=== PATIENT | female | born 1965 | race Caucasian/White ===

== ENCOUNTER → 2019-02-03 12:34 | Outpatient (CLI) | payer OTHER, SELFPAY ==
--- NOTE | 2019-02-03 12:38 | DI.RAD.S_ITS ---
PROCEDURE: XR WRIST RT MIN 3V INDICATIONS: ground level fall with right wrist pain TECHNIQUE: 4 views of the wrist were acquired. COMPARISON: [facility], , WRIST MINIMUM 3 VIEWS LEFT, 09/15/2015, 10:37. FINDINGS: Bones: No acute fractures or dislocations. No suspicious bony lesions. Scaphoid view: The scaphoid appears intact. Soft tissues: There is a small calcification adjacent to the distal ulna compatible with sequela of a prior fracture. IMPRESSION: 1. No acute fracture or dislocation. Dictated by: Ashok Michaels M.D. on 02/03/2019 at 13:40 Approved by: Ashok Michaels M.D. on 02/03/2019 at 13:41
--- NOTE | 2019-02-03 12:38 | DI.RAD.S_ITS ---
PROCEDURE: XR FOREARM RT 2V INDICATIONS: ground level fall with right forearm pain TECHNIQUE: 2 views of the forearm were acquired. COMPARISON: [facility], [place], XR WRIST RT MIN 3V, 02/03/2019, 12:39. FINDINGS: Bones: No acute fractures or dislocations. No suspicious bony lesions. Soft tissues: There is a small corticated ossicle adjacent to the distal ulna compatible with an old fracture. IMPRESSION: 1. No acute fracture or dislocation. Dictated by: Ashok Michaels M.D. on 02/03/2019 at 13:54 Approved by: Ashok Michaels M.D. on 02/03/2019 at 13:55
--- NOTE | 2019-02-03 12:38 | DI.RAD.S_ITS ---
PROCEDURE: XR HAND RT MIN 3V INDICATIONS: ground level fall with right hand pain TECHNIQUE: 3 views of the right hand acquired. COMPARISON: [facility], [place], XR WRIST RT MIN 3V, 02/03/2019, 12:39. [facility], [place], HAND 3V LEFT, 07/18/2015, 10:54. FINDINGS: Bones: No fractures or dislocations. Carpal bones are normally aligned. No suspicious bony lesions. Soft tissues: No suspicious soft tissue calcifications. IMPRESSION: 1. No fracture or dislocation. Dictated by: Ashok Michaels M.D. on 02/03/2019 at 13:41 Approved by: Ashok Michaels M.D. on 02/03/2019 at 13:54
== END ==
PROVIDERS: Visit Provider Physician Assistant
DX: M79.631 Pain in right forearm (principal); M79.641 Pain in right hand; M25.531 Pain in right wrist
CPT/HCPCS: 73090; 73110; 73130

== ENCOUNTER → 2021-03-11 13:21 | Outpatient (CLI) | payer OTHER, SELFPAY ==
--- NOTE | 2021-03-11 | DI.MG.S_ITS ---
BILATERAL DIGITAL SCREENING MAMMOGRAM 3D/2D WITH CAD: 03/11/2021 CLINICAL: Routine screening. Comparison is made to exam dated: 10/01/2013 [facility]. The tissue of both breasts is heterogeneously dense. This may lower the sensitivity of mammography. Current study was also evaluated with a Computer Aided Detection (CAD) system. There is a possible irregular asymmetry with an indistinct margin in the right breast posterior depth superior region seen on the mediolateral oblique view only. This is more prominent. No other significant masses, calcifications, or other findings are seen in either breast. IMPRESSION: INCOMPLETE: NEEDS ADDITIONAL IMAGING EVALUATION The possible irregular asymmetry in the right breast most likely is fibroglandular tissue and is indeterminate. Additional views with possible ultrasound are recommended. This exam was interpreted at Station ID: [id number]. NOTE: For mammograms, a report in lay terms will be sent to the patient. Approximately 15% of breast malignancies will not be visualized mammographically. In the management of a palpable breast mass, a negative mammogram must not discourage biopsy of a clinically suspicious lesion. Electronically Signed By: Karine starks/:03/13/2021 08:44:21 letter sent: Additional Imaging Needed ACR BI-RADS Category 0: Incomplete 3340F
== END ==
PROVIDERS: PCP Family Medicine; Referring Provider Family Medicine; Visit Provider Family Medicine
DX: Z12.31 Encounter for screening mammogram for malignant neoplasm of breast (principal)
CPT/HCPCS: 77063; 77067

== ENCOUNTER → 2021-04-04 13:27 | Outpatient (CLI) | payer OTHER, SELFPAY ==
--- NOTE | 2021-04-04 | DI.MG.S_ITS ---
UNILATERAL RIGHT DIGITAL DIAGNOSTIC MAMMOGRAM 3D/2D WITH ADDITIONAL VIEWS: 04/04/2021 CLINICAL: Additional evaluation requested from prior study. Comparison is made to exams dated: 03/11/2021 mammogram and 10/01/2013 mammogram - [facility]. The tissue of right breast is heterogeneously dense. This may lower the sensitivity of mammography. The benign asymmetry with an indistinct margin in the right breast posterior depth superior region seen on the mediolateral oblique view only is no longer seen. No other significant masses or calcifications are seen in the breast. IMPRESSION: BENIGN There is no mammographic evidence of malignancy. A 1 year screening mammogram is recommended. This exam was interpreted at Station ID: [id number]. NOTE: For mammograms, a report in lay terms will be sent to the patient. Approximately 15% of breast malignancies will not be visualized mammographically. In the management of a palpable breast mass, a negative mammogram must not discourage biopsy of a clinically suspicious lesion. Electronically Signed By: Wild Ahn acr/:04/04/2021 14:04:08 letter sent: Normal Exam ACR BI-RADS Category 2: Benign Finding(s) 3342F
== END ==
PROVIDERS: PCP Family Medicine; Referring Provider Family Medicine; Visit Provider Family Medicine
DX: R92.8 Other abnormal and inconclusive findings on diagnostic imaging of breast (principal)
CPT/HCPCS: 77065; G0279

== ENCOUNTER 2021-08-06 15:03 | Emergency (ER) | payer OTHER, MEDICAID, SELFPAY ==
[2021-08-06 15:19] VITALS: BP 145/94; PULSE 66; RESP 18; TEMP 36.2; O2SAT 98; BMI 21.5
--- NOTE | 2021-08-06 15:50 | ED_ITS ---
HPI - Head Injury General Chief complaint: Head Injury Stated complaint: HIT HEAD/LADDER COLLAPSED Time Seen by Provider: 08/06/21 15:49 Source: patient and family Mode of arrival: Wheelchair Limitations: no limitations History of Present Illness HPI Narrative: Otherwise healthy 56-year-old woman was working outside with a ladder. The center part of the tall expansions latter was not appropriately secured and the top half of the extension ladder came down and cot the crown of her head between the falling portion of the ladder and the stable portion of the latter. She did not have any acute loss of consciousness at time but was significantly dizzy, nauseated and continues to complain of significant headache. Her daughter notes that she had some gait unsteadiness walking to the car but that has seemed to resolve. She has no complaints of chest pain, dyspnea, palpitations, abdominal pain, diarrhea. She has had no recent fevers, cough, chills. She is able to speak in full sentences and is able to cooperate fully with exam and history taking Related Data Previous Rx's Medication Instructions Recorded cetirizine 10 mg tablet (Zyrtec) 5 mg PO DAILY PRN #30 tab 07/11/18 ondansetron HCl 4 mg tablet 4 mg PO Q8H PRN #14 tab 08/06/21 (Zofran) Allergies Allergy/AdvReac Type Severity Reaction Status Date / Time No Known Drug Allergies Allergy Verified 02/03/19 13:21 Review of Systems Review of Systems Narrative: Remainder of complete review of systems is otherwise unremarkable except for that included in the HPI. Patient History Social History Smoking Status: Former smoker Smoking Status: Former smoker alcohol intake frequency: holidays/special occasions only Substance Use Type: does not use Exam Narrative Exam Narrative: General: Healthy appearing, slightly dazed and complaining of headache but Able to give a complete and coherent history. Well-nourished well-developed HEENT: Moist mucous membranes, normal sclera with reactive pupils, significant tenderness to the left side of the crown with a mild hematoma and significant tenderness with manipulation at the basilar skull bilaterally with concerns for skull fracture. There is no hemotympanum appreciated. Neck: No JVD, supple, no midline tenderness Respiratory: Lungs are clear to auscultation, no wheezing no rales no rhonchi. Full and symmetrical air movement Cardiac: Regular rate and rhythm no murmurs no bruits Abdomen: Soft, nontender, good bowel tones, no flank pain Skin: Warm and dry, no rashes Neurologic: Grossly neurologically intact with no obvious asymmetries or abnormalities Extremities: No trauma, well perfused Psych: Cooperative, appropriate insight and affect Initial Vital Signs Initial Vital Signs: Vital Signs Temperature 97.2 F L 08/06/21 15:19 Pulse Rate 66 08/06/21 15:19 Respiratory Rate 18 08/06/21 15:19 Blood Pressure 145/94 H 08/06/21 15:19 Pulse Oximetry 98 08/06/21 15:19 Course Course Course Narrative: Emergency Medicine: Utilization of CT for Minor Blunt Head Trauma (Adult) Patient is 18 or older, presenting with minor blunt head trauma. Head CT was ordered by an emergency direct support professional caregiver for trauma because? -head struck by high-impact object - falling top half of an extension ladder?with clinical concerns for basilar skull fracture Orders Ordered: ED Orders 08/06/21 16:08 CT head/brain wo con Stat Discontinued Medications Acetaminophen (Acetaminophen 325 Mg Tablet) 975 mg PO NOW ONE Stop: 08/06/21 16:09 Last Admin: 08/06/21 16:26 Dose: 975 mg Documented by: ELIEL Ondansetron HCl (Ondansetron 4 Mg Odt) 4 mg SL NOW ONE Stop: 08/06/21 16:09 Last Admin: 08/06/21 16:26 Dose: 4 mg Documented by: ELIEL Vital Signs Vital signs: Vital Signs - 8 hr 08/06/21 15:19 Temperature 97.2 F L Pulse Rate 66 Respiratory Rate 18 Blood Pressure 145/94 H Pulse Oximetry 98 MDM - Head Injury Imaging Data CT scan - head: Radiologist's Impression: FINDINGS:? Image quality:? Excellent.? ? CSF spaces:? Basal cisterns are patent.? No extra-axial fluid collections.? Ventricles are normal in size and shape.? ? Brain:? No intracranial hemorrhage, mass, or mass effect.? Hong-white matter interface appears preserved.? ? Skull and face:? Calvarium and visualized facial bones are intact, without suspicious lesions.? ? Sinuses:? Visualized sinuses and mastoids are clear.? ? IMPRESSION:? ? 1. No acute intracranial abnormality. ? ? Dictated by: Ashok Michaels M.D. on 08/06/2021 at 15:26? ?? MDM Narrative Medical decision making narrative: 56-year-old woman who had the top portion of an extension ladder fall on the top of her head. She was starting to move forward out of the way so the bulk of the weight cot the posterior crown of her head rather than face or jaw. CT scan is unremarkable. She clearly has a concussion but no evidence of intracranial bleeding. Concussion symptoms as well as postconcussion syndrome are discussed with the patient. She will be discharged home with Zofran and instructions to follow-up with her primary care physician if she is not getting better by the end of the week. Discharge Plan Departure Patient Disposition: Home Clinical Impression: Concussion without loss of consciousness Instructions: DI for Closed Head Injury, DI for Postconcussion Syndrome Activity Restrictions/Additional Instructions: Thank you for coming in today Fortunately, you are actually hard headed. The ladder did not crack your skull and there is no bleeding inside your brain. You do have a concussion and likely will have some dizziness, nausea and feel bit ?off? for the next couple of days. Zofran, the nausea medicine you are given in the emergency department can help with some of the symptoms. This prescription was electronically transmitted to [facility]. If you feel that you are getting worse, please return to the ER Prescriptions: New ondansetron HCl [Zofran] 4 mg tablet 4 mg PO Q8H PRN (Reason: nausea and vomiting) Qty: 14 0RF No Action cetirizine [Zyrtec] 10 mg tablet 5 mg PO DAILY PRN (Reason: allergy symptoms) Qty: 30 1RF Referrals: Terrence Vitale MD [Primary Care Provider] -
--- NOTE | 2021-08-06 16:08 | DI.CT.S_ITS ---
PROCEDURE: CT HEAD/BRAIN WO CON INDICATIONS: head trauma - hit with ladder to crown TECHNIQUE: Noncontrast 4.5 mm thick angled axial sections acquired from the foramen magnum to the vertex, with coronal and sagittal reformats. For radiation dose reduction, the following was used: automated exposure control, adjustment of mA and/or kV according to patient size. COMPARISON: None. FINDINGS: Image quality: Excellent. CSF spaces: Basal cisterns are patent. No extra-axial fluid collections. Ventricles are normal in size and shape. Brain: No intracranial hemorrhage, mass, or mass effect. Hong-white matter interface appears preserved. Skull and face: Calvarium and visualized facial bones are intact, without suspicious lesions. Sinuses: Visualized sinuses and mastoids are clear. IMPRESSION: 1. No acute intracranial abnormality. Dictated by: Ashok Michaels M.D. on 08/06/2021 at 15:26 Approved by: Ashok Michaels M.D. on 08/06/2021 at 15:27
[2021-08-06] MEDS: ACETAMINOPHEN 325 MG TABLET 975 MG PO (16:26)
[2021-08-06] MEDS: ONDANSETRON 4 MG ODT SL (16:26)
[2021-08-06 17:03] VITALS: BP 138/91; PULSE 55; O2SAT 98
[2021-08-06] MEDS: ONDANSETRON 4 MG ODT PREPACK 1 BOTTLE MISC (17:12)
== END 2021-08-06 17:15 | disposition home or self-care (01) ==
PROVIDERS: Emergency Provider Emergency Medicine; PCP Family Medicine
DX: S06.0X0A Concussion without loss of consciousness, initial encounter (principal); Z87.891 Personal history of nicotine dependence; W20.8XXA Other cause of strike by thrown, projected or falling object, initial encounter; Y93.89 Activity, other specified
CPT/HCPCS: 70450; 99283; 99284

== ENCOUNTER 2021-09-09 13:30 | Emergency (ER) | payer OTHER, MEDICAID, SELFPAY ==
[2021-09-09] VITALS (12 sets, daily range): BP systolic 122–144; BP diastolic 69–93; PULSE 61–76; RESP 11–21; TEMP 36.3–36.4; O2SAT 96–98; BMI 21.5
--- NOTE | 2021-09-09 13:38 | DI.RAD.S_ITS ---
PROCEDURE: XR CHEST 1V INDICATIONS: chest pain TECHNIQUE: One view of the chest was acquired. COMPARISON: [facility], , CHEST 2 VIEW, 12/31/2011, 16:25. FINDINGS: Exam is slightly limited given rotation. Surgical changes and devices: Overlying EKG wires. Lungs and pleura: Lungs are clear. No pleural effusions or pneumothorax. Mediastinum: Mediastinal contours appear normal. Heart size is normal. Bones and chest wall: No suspicious bony lesions. Overlying soft tissues appear unremarkable. IMPRESSION: No evidence of an acute cardiopulmonary abnormality. Dictated by: Marco Romero D.O. on 09/09/2021 at 13:18 Approved by: Marco Romero D.O. on 09/09/2021 at 13:20
[2021-09-09 13:59] LABS: Add Manual Diff / Slide Review NO; Basophils Absolute Auto 0 /uL (0-100); Basophils Percent Auto 1.1 % (0-2); Eosinophils Absolute Auto 100 /uL (0-450); Eosinophils Percent Auto 1.7 % (2-4); Hematocrit 39.4 % (36-46); Hemoglobin 13.5 g/dL (12.0-16.0); Lymphocytes Absolute Auto 1800 /uL (1100-4500); Lymphocytes Percent Auto 40.9 % (25-40); Mean Corpuscular HGB Conc 34.3 % (30-36); Mean Corpuscular Hemoglobin 31.8 PG (26-34); Mean Corpuscular Volume 92.7 fL (80-100); Monocytes Absolute Auto 400 /uL (0-900); Monocytes Percent Auto 8.9 % (3-14); Neutrophils Absolute Auto 2100 /uL (1500-7000); Neutrophils Percent Auto 47.4 % (50-75); Platelet Count 220 X10^3/uL (150-400); Red Blood Cell Count 4.25 X10^6/uL (4.0-5.2); Red Cell Distribution Width 12.7 % (11.6-14.8); White Blood Cell Count 4.4 X10^3/uL (4.5-11.0)
[2021-09-09 14:06] LABS: INR 0.9 (0.9-1.3); Prothrombin Time 10.4 SECONDS (10.1-12.7)
[2021-09-09 14:08] LABS: PTT Partial Thromboplastin Tim 34 SECONDS (26.4-36.2)
[2021-09-09 14:10] LABS: Alanine Aminotransferase 23 IU/L (<35); Albumin 4.3 g/dL (3.5-5.0); Albumin Globulin Ratio 1.2 (1.0-2.8); Alkaline Phosphatase 62 U/L (38-126); Aspartate Aminotransferase 26 IU/L (14-36); BUN Creatinine Ratio 18.8 (6-22); Bilirubin Total 0.4 mg/dL (0.2-1.3); Blood Urea Nitrogen 13 mg/dL (7-17); Calcium 9.5 mg/dL (8.4-10.2); Carbon Dioxide 25 mmol/L (22-32); Chloride 107 mmol/L (98-107); Creatine Kinase 59 U/L (30-135); Estimated Glomerular Filt Rate > 60.0 mL/min (>60); Globulin 3.6 g/dL (1.7-4.1); Glucose 94 mg/dL (70-100); HEMOLYSIS < 15 (0-50); Lipase 108 U/L (23-300); Magnesium 1.8 mg/dL (1.6-2.3); Potassium 4.2 mmol/L (3.4-5.1); Sodium 139 mmol/L (137-145); Total Protein 7.9 g/dL (6.3-8.2)
[2021-09-09 14:21] LABS: Troponin I < 0.012 ng/mL (0.01-0.034)
--- NOTE | 2021-09-09 14:35 | ED_ITS ---
HPI - Chest Pain General Chief Complaint: Chest Pain Stated Complaint: CHEST PAIN Time Seen by Provider: 09/09/21 14:29 Source: patient Mode of arrival: Ambulatory Limitations: no limitations Limitations: no limitations History of Present Illness HPI narrative: This is a 56-year-old comes emergency department with complaint of chest pain. Patient states it woke up from sleep night. Patient states it feels left substernal underneath her left breast. Slightly deeper than the breast itself. Woke her up at night. She states movement seems to make it worse but she is unclear if it is actual rotation side bending type movement or if it is walking. Patient states she feels like she has an air bubble in her chest. She states that last for short periods of time less than 30 seconds maybe 45 seconds at the most. If she is still it seems to feel better if she is moving it is worse but she has difficulty delineating if that is just movement or exertion. It is not worse with deep inhalation. Does not radiate. She occasionally feels short of breath. She has felt slightly dizzy. She has had some nausea but no vomiting. No diaphoresis. No fevers. No cold cough or congestion. No diarrhea constipation. No urinary symptoms. She had COVID in June. She states the chest pain is different but the shortness of breath feels similar. She has no known past medical issues. Does not take any daily medications. No surgeries. No allergies. She quit smoking tobacco sometime ago, no alcohol or illicit. Her father's side of family has multiple members with atrial fibrillation including her father who had a cardiac arrest and has a defibrillator in pace she states it was because his blood pressure was low. Which she has a sister who is otherwise healthy. Related Data Previous Rx's Medication Instructions Recorded cetirizine 10 mg tablet (Zyrtec) 5 mg PO DAILY PRN #30 tab 07/11/18 ondansetron HCl 4 mg tablet 4 mg PO Q8H PRN #14 tab 08/06/21 (Zofran) tramadol 50 mg tablet (Ultram) 50 mg PO Q6H PRN #5 tab 09/09/21 Allergies Allergy/AdvReac Type Severity Reaction Status Date / Time No Known Drug Allergies Allergy Verified 09/09/21 13:39 Review of Systems Review of Systems ROS Unobtainable: All systems reviewed & are unremarkable except as noted in HPI and below Patient History Social History Smoking Status: Former smoker Smoking Status: Former smoker alcohol intake frequency: holidays/special occasions only Substance Use Type: does not use Exam Narrative Exam Narrative: GENERAL: Alert and oriented x three, female in mild distress. HEENT: Head normocephalic, atraumatic, EOMI, pupils reactive, face symmetric, moist mucous membranes NECK: Supple, full range of motion, no cervical vertebral tenderness. CARDIOVASCULAR: Regular rate and rhythm without murmurs, rubs or gallops. Non reproducible chest pain. No warmth, erythema skin changes or rash to the left chest or back. RESPIRATORY: Breath sounds equal bilaterally, no wheezes rales or rhonchi. ABDOMEN: Soft, nontender. Normoactive bowel sounds all 4 quadrants. No guarding or rebound, rigidity, no mass : No CVA tenderness EXTREMITIES: Normal range of motion, no clubbing or edema. Neurovascularly intact NEUROLOGICAL: Cranial nerves II through XII grossly intact. Moving all ext remities SKIN: Warm, dry, no petechiae, no rashes or lesions. Initial Vital Signs Initial Vital Signs: Vital Signs Temperature 97.5 F L 09/09/21 13:34 Pulse Rate 69 09/09/21 13:34 Respiratory Rate 15 09/09/21 13:34 Blood Pressure 143/93 H 09/09/21 13:34 Pulse Oximetry 98 09/09/21 13:34 Scores HEART Score Heart Score history: Slightly Suspicious Heart Score EKG: Normal Heart Score Age: 45-64 years old Heart Score risk factors: 1-2 risk factors Heart Score troponin: < or = to normal limit Heart Score Total: 2 PERC Score Age greater than or equal to 50 years: Yes Heart rate greater than or equal to 100 bpm: No Room Air O2 Sat less than 95%: No Unilateral leg swelling: No Recent trauma or surgery: No Hemoptysis: No Prior PE or DVT: No Hormone Use: No Total PERC Score: 1 Course Orders Ordered: Discontinued Medications Ketorolac Tromethamine (Ketorolac 30 Mg/Ml Vial) 15 mg IV NOW ONE Stop: 09/09/21 15:02 Last Admin: 09/09/21 15:12 Dose: 15 mg Documented by: CAMRYN Reevaluation(s) Reevaluation #1: Patient states she is not having pain but states she does not know if she is still having any symptoms. When attempted to clarify she states no chest pain at this time. Time: 17:43 Vital Signs Vital signs: Vital Signs - 8 hr 09/09/21 13:34 09/09/21 13:36 09/09/21 14:00 Temperature 97.5 F L Pulse Rate 69 74 66 Respiratory Rate 15 11 L Blood Pressure 143/93 H 143/93 H 133/83 Pulse Oximetry 98 98 97 09/09/21 14:30 09/09/21 15:02 09/09/21 15:30 Temperature Pulse Rate 62 61 66 Respiratory Rate 16 21 13 Blood Pressure 144/87 H Pulse Oximetry 97 97 97 09/09/21 16:00 09/09/21 16:30 Temperature Pulse Rate 69 69 Respiratory Rate 17 20 Blood Pressure Pulse Oximetry 97 97 MDM - Chest Pain Lab Data Result diagrams: 09/09/21 13:50 09/09/21 13:50 Labs: Lab Results 09/09/21 09/09/21 09/09/21 Range/Units 13:50 13:50 13:50 WBC 4.4 L (4.5-11.0) X10^3/uL RBC 4.25 (4.0-5.2) X10^6/uL Hgb 13.5 (12.0-16.0) g/dL Hct 39.4 (36-46) % MCV 92.7 (80-100) fL MCH 31.8 (26-34) PG MCHC 34.3 (30-36) % RDW 12.7 (11.6-14.8) % Plt Count 220 (150-400) X10^3/uL Neut % (Auto) 47.4 L (50-75) % Lymph % (Auto) 40.9 H (25-40) % Dunn % (Auto) 8.9 (3-14) % Eos % (Auto) 1.7 L (2-4) % Baso % (Auto) 1.1 (0-2) % Neut # (Auto) 2100 (3807-2520) /uL Lymph # (Auto) 1800 (5190-7307) /uL Dunn # (Auto) 400 (0-900) /uL Eos # (Auto) 100 (0-450) /uL Baso # (Auto) 0 (0-100) /uL PT 10.4 (10.1-12.7) SECONDS INR 0.9 (0.9-1.3) APTT 34 (26.4-36.2) SECONDS D-Dimer (<230) ng/mL Sodium 139 (137-145) mmol/L Potassium 4.2 (3.4-5.1) mmol/L Chloride 107 (98-107) mmol/L Carbon Dioxide 25 (22-32) mmol/L BUN 13 (7-17) mg/dL Creatinine 0.69 (0.52-1.04) mg/dL Estimated GFR > 60.0 (>60) mL/min BUN/Creatinine Ratio 18.8 (6-22) Glucose 94 (70-100) mg/dL Calcium 9.5 (8.4-10.2) mg/dL Magnesium 1.8 (1.6-2.3) mg/dL Total Bilirubin 0.4 (0.2-1.3) mg/dL AST 26 (14-36) IU/L ALT 23 (<35) IU/L Alkaline Phosphatase 62 (38-126) U/L Total Creatine Kinase 59 (30-135) U/L CK-MB (CK-2) TNP CK-MB (CK-2) Rel Index TNP Troponin I < 0.012 (0.01-0.034) ng/mL Total Protein 7.9 (6.3-8.2) g/dL Albumin 4.3 (3.5-5.0) g/dL Globulin 3.6 (1.7-4.1) g/dL Albumin/Globulin Ratio 1.2 (1.0-2.8) Lipase 108 (23-300) U/L SARS-CoV-2 (PCR) (Negative) 09/09/21 09/09/21 09/09/21 Range/Units 13:50 14:55 16:30 WBC (4.5-11.0) X10^3/uL RBC (4.0-5.2) X10^6/uL Hgb (12.0-16.0) g/dL Hct (36-46) % MCV (80-100) fL MCH (26-34) PG MCHC (30-36) % RDW (11.6-14.8) % Plt Count (150-400) X10^3/uL Neut % (Auto) (50-75) % Lymph % (Auto) (25-40) % Dunn % (Auto) (3-14) % Eos % (Auto) (2-4) % Baso % (Auto) (0-2) % Neut # (Auto) (0777-5163) /uL Lymph # (Auto) (6661-6291) /uL Dunn # (Auto) (0-900) /uL Eos # (Auto) (0-450) /uL Baso # (Auto) (0-100) /uL PT (10.1-12.7) SECONDS INR (0.9-1.3) APTT (26.4-36.2) SECONDS D-Dimer < 200 (<230) ng/mL Sodium (137-145) mmol/L Potassium (3.4-5.1) mmol/L Chloride (98-107) mmol/L Carbon Dioxide (22-32) mmol/L BUN (7-17) mg/dL Creatinine (0.52-1.04) mg/dL Estimated GFR (>60) mL/min BUN/Creatinine Ratio (6-22) Glucose (70-100) mg/dL Calcium (8.4-10.2) mg/dL Magnesium (1.6-2.3) mg/dL Total Bilirubin (0.2-1.3) mg/dL AST (14-36) IU/L ALT (<35) IU/L Alkaline Phosphatase (38-126) U/L Total Creatine Kinase (30-135) U/L CK-MB (CK-2) CK-MB (CK-2) Rel Index Troponin I < 0.012 (0.01-0.034) ng/mL Total Protein (6.3-8.2) g/dL Albumin (3.5-5.0) g/dL Globulin (1.7-4.1) g/dL Albumin/Globulin Ratio (1.0-2.8) Lipase (23-300) U/L SARS-CoV-2 (PCR) Negative (Negative) Urine Dip Bedside Urine Glucose Negative Bedside Urine Bilirubin - Negative Bedside Urine Ketone - Negative Urine Specific Luana 1.015 Bedside Urine Occult Blood - Negative Bedside Urine pH 6.0 Bedside Urine Protein - Negative Bedside Urine Urobilinogen 0.2 Bedside Urine Nitrite - Negative Bedside Urine Leukocytes - Negative Esterase Imaging Data Chest x-ray: Radiologist's Impression: [address] [address] XRay Report Signed Patient: Ale Jones MR#: [id number] : 1965 Acct:[id number] Age/Sex: 56 / F Date of Service: 09/09/21 Loc: ED Accession Number: [id number] ?? Procedure: XR chest 1V Ordering Provider: Adelia Moreno D.O. PROCEDURE:? XR CHEST 1V ? INDICATIONS:? chest pain ? TECHNIQUE:? One view of the chest was acquired.? ? COMPARISON:? [facility], , CHEST 2 VIEW, 12/31/2011, 16:25. ? FINDINGS:? ? Exam is slightly limited given rotation. Surgical changes and devices:? Overlying EKG wires. ? Lungs and pleura:? Lungs are clear.? No pleural effusions or pneumothorax.? ? Mediastinum:? Mediastinal contours appear normal.? Heart size is normal.? ? Bones and chest wall:? No suspicious bony lesions.? Overlying soft tissues appear unremarkable.? ? IMPRESSION:? ? No evidence of an acute cardiopulmonary abnormality. ? ? Dictated by: Marco Romero D.O. on 09/09/2021 at 13:18 ? ? Approved by: Marco Romero D.O. on 09/09/2021 at 13:20? ECG Data Attestation: I personally reviewed and interpreted this ECG as follows: Prior ECG tracings: not available for review Interpretation: Sinus rhythm rate of 60 NJ 128 QRS is [address]TC [address] No acute ST elevation or depression. No priors available. Sinus rhythm, sinus bradycardia rate of 58 NJ 132 QRS of [address] QTC [address] No acute ST elevation depression. Appears similar to prior from earlier today. MDM Narrative Medical decision making narrative: This is a 56-year-old female who comes to the emergency department with complaint of left-sided chest pain that is been present for the last 2 days it is intermittent worse with movement but unclear if this is just movement physically of her body or actual exertional chest pain. She has had some slight nausea and shortness of breath. She did have COVID in June. Initial labs show a low white count, D-dimer was added on with plan for repeat troponin at 2:00 a.m. recent EKG. And repeat COVID swab. D-dimer is reassuring with appropriate vital signs and PERC score of 1, heart score is 2 with reassuring troponins an EKG. Patient has been asymptomatic after a dose of Toradol. Discussed differential and that she should follow-up. Asked to return if she has recurrent symptoms or worsening changes. All questions answered. Discharge Plan Departure Patient Disposition: Home Clinical Impression: Atypical chest pain Instructions: DI for Atypical Chest Pain Activity Restrictions/Additional Instructions: Follow-up with your physician for recheck. You may take ibuprofen up to 800 mg every 8 hours for pain and/or Tylenol up to a 1000 mg every 8 hours for pain. If in adequate you may take 1 tramadol every 6 hours as needed. Prescription sent to [facility] in [place]. Please return for fevers, new or worsening chest pain, shortness of breath, passing out or lightheadedness, persistent vomiting or other new or concerning symptoms. Prescriptions: New tramadol [Ultram] 50 mg tablet 50 mg PO Q6H PRN (Reason: pain) Qty: 5 0RF No Action cetirizine [Zyrtec] 10 mg tablet 5 mg PO DAILY PRN (Reason: allergy symptoms) Qty: 30 1RF ondansetron HCl [Zofran] 4 mg tablet 4 mg PO Q8H PRN (Reason: nausea and vomiting) Qty: 14 0RF Referrals: Terrence Vitale MD [Primary Care Provider] -
[2021-09-09] MEDS: KETOROLAC 30 MG/ML VIAL 15 MG IV (15:12)
[2021-09-09 15:33] LABS: COVID19 -Nasal RAPID Negative (Negative)
[2021-09-09 15:34] LABS: D Dimer < 200 ng/mL (<230)
[2021-09-09 17:34] LABS: Troponin I < 0.012 ng/mL (0.01-0.034)
== END 2021-09-09 18:21 | disposition home or self-care (01) ==
PROVIDERS: Emergency Provider Emergency Medicine; PCP Family Medicine
DX: R07.89 Other chest pain (principal); Z20.822 Contact with and (suspected) exposure to COVID-19
CPT/HCPCS: 36415; 71045; 80053; 81003; 82550; 83690; 83735; 84484; 85025; 85379; 85610; 85730; 87635; 93005; 93010; 96374; 99284; C9803; J1885

== ENCOUNTER → 2021-10-01 09:21 | Outpatient (CLI) | payer OTHER, MEDICAID, SELFPAY ==
[2021-10-01 11:05] LABS: COVID19 -Nasal RAPID Negative (Negative)
== END ==
PROVIDERS: PCP Family Medicine; Visit Provider Nurse Practitioner Critical Care Medicine
DX: Z20.822 Contact with and (suspected) exposure to COVID-19 (principal)
CPT/HCPCS: 87635

== ENCOUNTER → 2022-01-12 11:55 | Outpatient (CLI) | payer OTHER, MEDICAID, SELFPAY ==
--- NOTE | 2022-01-12 11:57 | DI.RAD.S_ITS ---
PROCEDURE: XR LUMBAR SPINE 2-3V INDICATIONS: chronic low back TECHNIQUE: 3 views of the lumbar spine were acquired. COMPARISON: None. FINDINGS: Bones: 5 [id number] vertebrae are present. There is normal bony alignment. No vertebral body compression fractures. No suspicious bony lesions. Mild 3-L4, L4-L5 and L5-S1 L5-S1 facet arthropathy. Soft tissues: Overlying bowel gas pattern is normal. No suspicious soft tissue calcifications. IMPRESSION: Mild multilevel facet arthropathy. No acute osseous lesion. If symptoms and/or clinical suspicion for pathology persists, evaluation with MRI should be considered for further assessment. Dictated by: Venessa Valentin MD, PhD on 01/12/2022 at 15:25 Approved by: Venessa Valentin MD, PhD on 01/12/2022 at 15:26
== END ==
PROVIDERS: PCP Family Medicine; Referring Provider Family Medicine; Visit Provider Family Medicine
DX: M47.816 Spondylosis without myelopathy or radiculopathy, lumbar region (principal); M47.817 Spondylosis without myelopathy or radiculopathy, lumbosacral region; M54.50 Low back pain, unspecified; G89.29 Other chronic pain
CPT/HCPCS: 72100

== ENCOUNTER → 2022-01-13 09:47 | Outpatient (CLI) | payer OTHER, MEDICAID, SELFPAY ==
[2022-01-13 10:33] LABS: Add Manual Diff / Slide Review NO; Basophils Absolute Auto 0 /uL (0-100); Basophils Percent Auto 1.1 % (0-2); Eosinophils Absolute Auto 100 /uL (0-450); Eosinophils Percent Auto 1.7 % (2-4); Hematocrit 39.6 % (36-46); Hemoglobin 13.7 g/dL (12.0-16.0); Lymphocytes Absolute Auto 1300 /uL (1100-4500); Lymphocytes Percent Auto 35.1 % (25-40); Mean Corpuscular HGB Conc 34.7 % (30-36); Mean Corpuscular Volume 92.2 fL (80-100); Monocytes Absolute Auto 300 /uL (0-900); Monocytes Percent Auto 8.9 % (3-14); Neutrophils Absolute Auto 2000 /uL (1500-7000); Neutrophils Percent Auto 53.2 % (50-75); Platelet Count 229 X10^3/uL (150-400); Red Cell Distribution Width 12.9 % (11.6-14.8); White Blood Cell Count 3.8 X10^3/uL (4.5-11.0)
[2022-01-13 10:40] LABS: Hemoglobin A1C% w Est Avg Glu 5.4 % (4.0-6.0)
[2022-01-13 10:41] LABS: Alanine Aminotransferase 18 IU/L (<35); Albumin 4.3 g/dL (3.5-5.0); Albumin Globulin Ratio 1.3 (1.0-2.8); Alkaline Phosphatase 78 U/L (38-126); Aspartate Aminotransferase 26 IU/L (14-36); BUN Creatinine Ratio 17.9 (6-22); Bilirubin Total 0.6 mg/dL (0.2-1.3); Blood Urea Nitrogen 12 mg/dL (7-17); Calcium 9.4 mg/dL (8.4-10.2); Carbon Dioxide 27 mmol/L (22-32); Chloride 104 mmol/L (98-107); Cholesterol 259 mg/dL (140-199); Estimated Glomerular Filt Rate > 60 mL/min (>60); Globulin 3.3 g/dL (1.7-4.1); Glucose 101 mg/dL (70-100); HDL Cholesterol 71 mg/dL (40-60); HEMOLYSIS < 15 (0-50); LDL Cholesterol Calculated 160 mg/dL (<100); Potassium 4.3 mmol/L (3.4-5.1); Sodium 137 mmol/L (137-145); Total Protein 7.6 g/dL (6.3-8.2); Triglycerides 140 mg/dL (35-150)
[2022-01-13 10:57] LABS: Vitamin D 25 Hydroxy (D3) 30.5 ng/mL (30.0-100.0)
[2022-01-13 11:11] LABS: TSH w/ Reflex to FT4 2.14 uIU/mL (0.47-4.68)
[2022-01-13 11:31] LABS: Vitamin B12 687 pg/mL (239-931)
== END ==
PROVIDERS: PCP Family Medicine; Referring Provider Family Medicine; Visit Provider Family Medicine
DX: E78.5 Hyperlipidemia, unspecified (principal); G89.29 Other chronic pain; M54.50 Low back pain, unspecified; R53.83 Other fatigue; R73.9 Hyperglycemia, unspecified
CPT/HCPCS: 36415; 80053; 80061; 82306; 82607; 83036; 84443; 85025

== ENCOUNTER → 2022-03-13 11:49 | Outpatient (CLI) | payer OTHER, MEDICAID, SELFPAY ==
--- NOTE | 2022-03-13 11:51 | DI.RAD.S_ITS ---
PROCEDURE: XR FEMUR RT MIN 2V INDICATIONS: mass to right upper thigh TECHNIQUE: 2 views of the femur were acquired. COMPARISON: None. FINDINGS: Bones: No fractures or dislocations. No suspicious bony lesions. Soft tissues: No suspicious soft tissue calcifications IMPRESSION: Unremarkable right femur radiographs. If there is clinical concern for soft tissue mass, follow-up MRI recommended Approved by: Ricardo Jaime M.D. on 03/13/2022 at 16:42
--- NOTE | 2022-03-13 11:51 | DI.CT.S_ITS ---
PROCEDURE: CT LUNG LOW DOSE SCREENING INDICATIONS: 30+ pack year smoking history TECHNIQUE: Noncontrast 2.0-2.5 mm thick sections acquired from the pulmonary apices to the posterior costophrenic angles. 7 mm thick axial MIP, and 5 mm coronal and sagittal reformats were then acquired. A low radiation dose technique was utilized. COMPARISON: None. FINDINGS: Image quality: Diagnostic, given the low radiation dose technique. Lungs and pleura: A 7 mm ground-glass nodule is present within the right upper lobe (series 3/image 117). A 6 mm ground-glass nodule is present more inferiorly within the right upper lobe (series 3/image 132). No other suspicious pulmonary nodules. No acute airspace opacities. No pleural effusion or pneumothorax. Mediastinum: Heart size is normal. No pericardial effusion. No mediastinal adenopathy by size criteria. Thoracic aorta and central pulmonary arteries are normal in size. Esophagus is normal in caliber. No hiatal hernia. Bones and chest wall: No suspicious bony lesions. No vertebral body compression fractures. No axillary or supraclavicular adenopathy by size criteria. Thyroid gland is unremarkable. Abdomen: Visualized upper abdomen solid organs and bowel loops appear normal in the absence of contrast. IMPRESSION: 1. 2 subcentimeter ground-glass nodules. No other suspicious nodules or mass lesions. LUNG-RADS 2; annual CT follow-up recommended. Dictated by: Annetta Andrews M.D. on 03/13/2022 at 14:35 Approved by: Annetta Andrews M.D. on 03/13/2022 at 14:37
--- NOTE | 2022-03-13 12:13 | DI.ECHO.S_ITS ---
Interpretation Summary The patient was in sinus rhythm with heart rates between 55-74 bpm during the exam. The left ventricle is normal in size and wall thickness. The ejection fraction is estimated to be 60-65%. Diastolic parameters suggest probable normal left ventricular diastolic function and normal filling pressures. There is mild tricuspid regurgitation. The right ventricular systolic pressure is estimated to be at least 21 mmHg based on an estimated right atrial pressure of 3 mm Hg. No prior study for comparison. Procedure: A two-dimensional transthoracic echocardiogram with color flow and Doppler was performed. The study quality was technically adequate. There is no prior echocardiogram noted for this patient. The patient was in sinus rhythm with heart rates between 55-74 bpm during the exam. Left Ventricle: The left ventricle is normal in size and wall thickness. The ejection fraction is estimated to be 60-65%. Diastolic parameters suggest probable normal left ventricular diastolic function and normal filling pressures. Right Ventricle: The right ventricle is normal in size and function. Atria: The left atrial size is normal. Right atrial size is normal. There is no Doppler evidence for an interatrial shunt. Mitral Valve: The mitral valve is normal in structure and function. There is trace mitral regurgitation. Aortic Valve: The aortic valve is trileaflet. The aortic valve opens well. There is no aortic valve stenosis. No aortic regurgitation is present. Tricuspid Valve: The tricuspid valve is normal in structure and function. There is mild tricuspid regurgitation. The right ventricular systolic pressure is estimated to be at least 21 mmHg based on an estimated right atrial pressure of 3 mm Hg. Pulmonic Valve: The pulmonic valve leaflets are thin and pliable; valve motion is normal. There is no pulmonic valvular regurgitation. Great Vessels: The aortic root is normal size. The dimensions of the ascending aorta are normal. The IVC is of normal diameter and collapses greater than 50% with a sniff. This suggests a low right atrial pressure of 3 mm Hg. Pericardium/ Pleura There is no pericardial effusion. There is no pleural effusion. MMode/2D Measurements & Calculations LVIDd: 4.6 cm LVOT diam: 2.0 cm LVIDs: 3.9 cm Ao root diam: 3.0 cm FS: 15.3 % asc Aorta Diam: 3.1 cm EPSS: 0.42 cm Ao Arch Diam (Prox Trans): 2.3 cm IVSd: 0.84 cm LVPWd: 0.77 cm LV clarke. diameter/BSA (cm/m^2): 2.4 LV sys. diameter/BSA (cm/m^2): 2.0 LA A2 area: 20.4 cm2 RA long axis: 4.2 cm LA A4 area: 19.2 cm2 RA area: 16.5 cm2 LA length (vol): 5.5 cm RA vol: 55.4 ml LA vol: 60.6 ml RA : 28.8 ml/m2 LA vol index: 31.5 ml/m2 IVC diam: 1.6 cm RVD1 (basal): 3.4 cm RVD2 (mid): 2.7 cm TAPSE: 2.4 cm Doppler Measurements & Calculations Ao V2 max: 134.6 cm/sec LVOT Max Darrius: 99.7 cm/sec Ao V2 mean: 88.8 cm/sec LV V1 max P.0 mmHg Ao max P.2 mmHg LV V1 VTI: 24.5 cm Ao mean P.7 mmHg MICHELLE(I,D): 2.6 cm2 Ao V2 VTI: 28.2 cm MICHELLE(V,D): 2.3 cm2 sev ratio: 0.87 MICHELLE indexed to BSA (cm^2/m^2): 1.4 MV E max darrius: 85.3 cm/sec TR max darrius: 216.5 cm/sec MV A max darrius: 58.3 cm/sec TR max P.7 mmHg MV E/A: 1.5 PA V2 max: 87.3 cm/sec Med Peak E' Darrius: 6.8 cm/sec PA V2 mean: 61.5 cm/sec E/E' med: 12.5 PA mean P.7 mmHg Lat Peak E' Darrius: 10.1 cm/sec PA Accel Time: 0.18 sec E/E' lat: 8.4 E/e' average: 10.5 MV dec time: 0.21 sec SV(LVOT): 74.8 ml Reading Physician:DIONISIO
== END ==
PROVIDERS: PCP Family Medicine; Referring Provider Family Medicine; Visit Provider Family Medicine
DX: R91.8 Other nonspecific abnormal finding of lung field (principal); R01.1 Cardiac murmur, unspecified; I07.1 Rheumatic tricuspid insufficiency; R22.41 Localized swelling, mass and lump, right lower limb; Z87.891 Personal history of nicotine dependence
CPT/HCPCS: 71250; 73552; 93306

== ENCOUNTER → 2022-10-23 11:19 | Outpatient (CLI) | payer OTHER, MEDICAID, SELFPAY ==
--- NOTE | 2022-10-23 | DI.MRI.S_ITS ---
PROCEDURE: MR BRAIN (IAC) WWO CON INDICATIONS: Sudden idiopathic hearing loss, right ear TECHNIQUE: Noncontrast sagittal T1 spin echo, axial FLAIR, axial gradient echo, axial diffusion and ADC through the brain. Axial thin-slice 3D CISS, coronal TruFISP, axial T1 spin echo with fat saturation through the internal auditory canals. After the administration of contrast, thin slice axial and coronal T1 spin echo with fat saturation through the internal auditory canals, and axial and coronal and sagittal T1 spin echo with fat saturation through the brain. COMPARISON: [facility], CT, CT HEAD/BRAIN WO CON, 08/06/2021, 16:19. FINDINGS: Image quality: Excellent. Cerebellopontine angles: No cerebellopontine angle masses. Inner ear structures appear normally formed. No suspicious enhancement in the internal auditory canal or along the course of the 7th cranial nerve. CSF spaces: Ventricles are normal in size and shape. No extra-axial fluid collections. Basal cisterns are patent. Brain: No intracranial bleeds or mass effects. Hong-white matter interface is intact. No abnormal intracranial enhancement. Diffusion weighted images demonstrate no acute ischemic insults. Brainstem appears normal. Normal intravascular flow voids are present. Skull and face: Calvarial marrow signal is normal. Orbits appear normal. Sinuses: Sinuses and mastoids are clear. IMPRESSION: No significant abnormality is seen. Specifically, no masses or abnormal enhancement are seen within the cerebellopontine angle cisterns or within the internal auditory canals. Dictated by: James Mcadams M.D. on 10/23/2022 at 11:52 Approved by: James Mcadams M.D. on 10/23/2022 at 11:54
== END ==
PROVIDERS: PCP Family Medicine; Referring Provider Otolaryngology; Visit Provider Otolaryngology
DX: H91.21 Sudden idiopathic hearing loss, right ear (principal)
CPT/HCPCS: 70553

== ENCOUNTER → 2022-11-01 11:32 | Outpatient (CLI) | payer OTHER, MEDICAID, SELFPAY ==
--- NOTE | 2022-11-01 | DI.MG.S_ITS ---
BILATERAL DIGITAL SCREENING MAMMOGRAM 3D/2D WITH CAD: 11/01/2022 CLINICAL: Routine screening. Comparison is made to exams dated: 04/04/2021 mammogram, 03/11/2021 mammogram, and 10/01/2013 mammogram - [facility]. Both breasts are heterogeneously dense, which may obscure small masses (category c / 51-75% glandular tissue). Current study was also evaluated with a Computer Aided Detection (CAD) system. No significant masses, calcifications, or other findings are seen in either breast. There has been no significant interval change. IMPRESSION: NEGATIVE There is no mammographic evidence of malignancy. A 1 year screening mammogram is recommended. Based on the Tyrer Cuzick model (a risk assessment model) the patient's lifetime risk is 12.7% and her 10 year risk is 5.0%. According to the ACR, ACS, and NCCN guidelines, an annual breast MRI exam along with mammogram is recommended if the patient's lifetime risk is 20% or greater. This exam was interpreted at Station ID: [id number]. NOTE: For mammograms, a report in lay terms will be sent to the patient. Approximately 15% of breast malignancies will not be visualized mammographically. In the management of a palpable breast mass, a negative mammogram must not discourage biopsy of a clinically suspicious lesion. Electronically Signed By: Ti Perez M.D., jr/dmitriy:11/01/2022 15:42:40 letter sent: Normal Exam ACR BI-RADS Category 1: Negative [id number]
== END ==
PROVIDERS: PCP Family Medicine; Referring Provider Family Medicine; Visit Provider Family Medicine
DX: Z12.31 Encounter for screening mammogram for malignant neoplasm of breast (principal)
CPT/HCPCS: 77063; 77067

== ENCOUNTER → 2023-01-10 08:47 | Outpatient (CLI) | payer OTHER, MEDICAID, SELFPAY ==
[2023-01-11 14:38] LABS: Fecal Immunochemical Test Negative (Negative)
== END ==
PROVIDERS: PCP Family Medicine; Referring Provider Family Medicine; Visit Provider Family Medicine
DX: Z12.11 Encounter for screening for malignant neoplasm of colon (principal); E78.5 Hyperlipidemia, unspecified
CPT/HCPCS: 82274

== ENCOUNTER → 2023-02-19 15:09 | Outpatient (CLI) | payer OTHER, MEDICAID, SELFPAY ==
[2023-02-19 15:48] LABS: Add Manual Diff / Slide Review NO; Basophils Absolute Auto 100 /uL (0-100); Eosinophils Absolute Auto 100 /uL (0-450); Eosinophils Percent Auto 1.6 % (2-4); Hematocrit 39.5 % (36-46); Hemoglobin 13.4 g/dL (12.0-16.0); Lymphocytes Absolute Auto 1600 /uL (1100-4500); Mean Corpuscular Hemoglobin 31.9 PG (26-34); Monocytes Absolute Auto 400 /uL (0-900); Monocytes Percent Auto 6.3 % (3-14); Neutrophils Absolute Auto 4900 /uL (1500-7000); Neutrophils Percent Auto 69.1 % (50-75); Platelet Count 233 X10^3/uL (150-400); Red Cell Distribution Width 14.4 % (11.6-14.8); White Blood Cell Count 7.1 X10^3/uL (4.5-11.0)
[2023-02-19 16:16] LABS: Alanine Aminotransferase 59 IU/L (<35); Albumin 4.1 g/dL (3.5-5.0); Albumin Globulin Ratio 1.2 (1.0-2.8); Alkaline Phosphatase 90 U/L (38-126); Aspartate Aminotransferase 44 IU/L (14-36); BUN Creatinine Ratio 17.3 (6-22); Bilirubin Total 0.7 mg/dL (0.2-1.3); Blood Urea Nitrogen 13 mg/dL (7-17); Carbon Dioxide 29 mmol/L (22-32); Chloride 102 mmol/L (98-107); Estimated Glomerular Filt Rate > 60 mL/min (>60); Globulin 3.4 g/dL (1.7-4.1); Glucose 121 mg/dL (70-100); HEMOLYSIS < 15 (0-50); Sodium 137 mmol/L (137-145); Total Protein 7.5 g/dL (6.3-8.2)
[2023-02-20 16:43] LABS: Hep C Virus Ab w/Reflex Quant REACTIVE s/c (NEGATIVE)
== END ==
PROVIDERS: PCP Family Medicine; Referring Provider Family Medicine; Visit Provider Family Medicine
DX: E78.5 Hyperlipidemia, unspecified (principal); I10 Essential (primary) hypertension; Z12.11 Encounter for screening for malignant neoplasm of colon; Z01.84 Encounter for antibody response examination
CPT/HCPCS: 36415; 80053; 85025; 86803; 87522

== ENCOUNTER → 2023-02-21 12:50 | Outpatient (CLI) | payer OTHER, MEDICAID, SELFPAY ==
[2023-02-21 13:47] LABS: Cholesterol 181 mg/dL (140-199); HDL Cholesterol 81 mg/dL (40-60); LDL Cholesterol Calculated 80 mg/dL (<100); Triglycerides 100 mg/dL (35-150)
== END ==
PROVIDERS: PCP Family Medicine; Referring Provider Family Medicine; Visit Provider Family Medicine
DX: E78.5 Hyperlipidemia, unspecified (principal); I10 Essential (primary) hypertension; Z12.11 Encounter for screening for malignant neoplasm of colon
CPT/HCPCS: 36415; 80061

== ENCOUNTER 2023-03-21 05:54 | Emergency (ER) | payer OTHER, MEDICAID, SELFPAY ==
[2023-03-21 05:58] VITALS: BP 119/80; PULSE 82; RESP 18; TEMP 36.4; O2SAT 95; BMI 24.0
--- NOTE | 2023-03-21 06:13 | ED.GENADULT ---
HPI - General Adult General Chief complaint: Eye Problems Stated complaint: something in left eye Time Seen by Provider: 03/21/23 05:55 Source: patient Mode of arrival: Ambulatory History of Present Illness HPI narrative: 57-year-old female. Does wear corrective lenses but does not wear contacts. No prior eye surgeries. Woke up about an hour and a half ago with pain to her left eye. She denies any trauma. They tried to wash it out at home. There is no specific foreign body seen. Related Data Previous Rx's Medication Instructions Recorded atorvastatin 20 mg tablet (Lipitor) 20 mg PO BEDTIME #90 tabs 01/04/23 erythromycin 5 mg/gram (0.5 %) eye 0.5 inch EYE-LEFT TID 3 days #3.5 03/21/23 ointment grams Allergies Allergy/AdvReac Type Severity Reaction Status Date / Time No Known Drug Allergies Allergy Verified 02/11/23 15:54 Review of Systems ENT Ears, Nose, Mouth, and Throat: Reports system reviewed and no additional complaints, except as documented Patient History Medical History Acute hearing loss of right ear Dermatitis of both ear canals Hyperlipidemia Immunity to hepatitis C determined by serologic test Social History Smoking Status: Former smoker Smoking Status: Former smoker alcohol intake frequency: holidays/special occasions only Substance Use Type: does not use Exam Initial Vital Signs Initial Vital Signs: Vital Signs Temperature 97.6 F 03/21/23 05:58 Pulse Rate 82 03/21/23 05:58 Respiratory Rate 18 03/21/23 05:58 Blood Pressure 119/80 03/21/23 05:58 Pulse Oximetry 95 03/21/23 05:58 Oxygen Delivery Method Room Air 03/21/23 05:58 Eyes Periorbital: periorbital findings normal Eyelids: eyelids normal Conjunctivae: conjunctivae normal Sclera: sclerae normal Cornea: corneas abnormal on the left fluorescein used and abrasion and fluorescein used Pupils: PERRL EOM: EOM intact bilaterally Skin General: no rashes or lesions noted Neuro General: patient alert and patient awake Course Orders Ordered: Discontinued Medications Erythromycin (Erythromycin Ophth 1 Gm Oint) 1 applic EYE-LEFT NOW ONE Stop: 03/21/23 06:13 Fluorescein Sodium (Fluorescein 1 Mg Strip) 1 mg EYE-BOTH NOW ONE Stop: 03/21/23 05:56 Ibuprofen (Ibuprofen 400 Mg Tablet) 800 mg PO NOW ONE Stop: 03/21/23 06:14 Proparacaine HCl (Proparacaine 0.5% Ophth Anel) 1 drops EYE-RIGHT NOW ONE Stop: 03/21/23 05:56 Vital Signs Vital signs: Vital Signs - 8 hr 03/21/23 05:58 Temperature 97.6 F Pulse Rate 82 Respiratory Rate 18 Blood Pressure 119/80 Pulse Oximetry 95 Oxygen Delivery Method Room Air Medical Decision Making MDM Narrative Medical decision making narrative: No foreign body noted with direct observation of the left eye to include under the upper and lower eyelids. Patient has a fairly obvious uptake fluorescein of the left eye that is consistent with a corneal abrasion. Low suspicion for glaucoma.Will discharge patient with prescription for erythromycin ointment. She was given care instructions and return precautions. She expressed understanding and agreement. Discharge Plan Departure Patient Disposition: Home Clinical Impression: Corneal abrasion Instructions: DI for Corneal Abrasion Activity Restrictions/Additional Instructions: You can take Tylenol and ibuprofen for any discomfort. Use the erythromycin ointment as directed. A prescription was sent to [facility]. Return to the emergency department for new or worsening symptoms. Prescriptions: New erythromycin 5 mg/gram (0.5 %) ointment 0.5 inch EYE-LEFT TID 3 Days Qty: 3.5 1RF No Action atorvastatin [Lipitor] 20 mg tablet 20 mg PO BEDTIME Qty: 90 3RF Referrals: Terrence Vitale MD [Primary Care Provider] - Stand Alone Forms: Patient Portal/API
[2023-03-21] MEDS: IBUPROFEN 400 MG TABLET 800 MG PO (06:17)
[2023-03-21] MEDS: PROPARACAINE 0.5% OPHTH SOL 1 DROPS EYE-RIGHT (06:18)
[2023-03-21] MEDS: ERYTHROMYCIN OPHTH 1 GM OINT 1 APPLIC EYE-LEFT (06:18)
[2023-03-21] MEDS: FLUORESCEIN 1 MG STRIP EYE-BOTH (06:18)
== END 2023-03-21 06:30 | disposition home or self-care (01) ==
PROVIDERS: Emergency Provider Emergency Medicine; PCP Family Medicine
DX: S05.02XA Injury of conjunctiva and corneal abrasion without foreign body, left eye, initial encounter (principal)
CPT/HCPCS: 99282; 99283

== ENCOUNTER 2023-10-01 18:52 | Emergency (ER) | payer OTHER, MEDICAID, SELFPAY ==
[2023-10-01 18:58] VITALS: BP 156/89; PULSE 96; RESP 18; TEMP 36.6; O2SAT 99; BMI 21.5
--- NOTE | 2023-10-01 19:10 | DI.RAD.S_ITS ---
PROCEDURE: XR ANKLE LT MIN 3V INDICATIONS: fall TECHNIQUE: 3 views of the ankle were acquired. COMPARISON: [facility] [place], CR, XR ANKLE 3+ VIEWS LEFT, 09/06/2023, 9:57. FINDINGS: Bones: Medial as well as lateral malleolar fixation is present. Hardware is intact without hardware fracture or periprosthetic lucency to suggest loosening. Alignment is stable. There is good anatomic alignment. Osteopenia is present. Soft tissues: No tibiotalar joint effusion. Achilles tendon appears normal. IMPRESSION: Stable appearance of surgical fixation. Osteopenia is present. Dictated by: Angela Burrell M.D. on 10/01/2023 at 20:00 Approved by: Angela Burrell M.D. on 10/01/2023 at 20:03
--- NOTE | 2023-10-01 20:20 | ED.LOWEXIN ---
HPI - Extremity Injury (Lower) General Chief Complaint: Extremity Injury, Lower Stated Complaint: LFT ANKLE INJURY, POST SURGERY 2 MOS, CAST OFF / Time Seen by Provider: 10/01/23 19:08 Mode of arrival: Ambulatory History of Present Illness HPI Narrative: 58-year-old female presents with left ankle injury in pain. Patient was walking on her crutches when she tripped. She states she felt a pop in his concerned that her hardware may be broken or displaced. She has a follow up orthopedic surgery appointment in [address] Toussaint Related Data Home Medications Medication Instructions Recorded Confirmed acetaminophen 325 mg capsule 650 mg PO Q4H PRN Pain (Scale 10/01/23 10/01/23 (Tylenol) Score 1-3) aspirin 81 mg capsule 81 mg PO DAILY 10/01/23 10/01/23 atorvastatin 20 mg tablet (Lipitor) 20 mg PO SEEINSTR 10/01/23 10/01/23 naproxen 500 mg tablet 500 mg PO BID 10/01/23 10/01/23 Previous Rx's Medication Instructions Recorded tramadol 50 mg tablet 100 mg (2 x 50 mg) PO Q4-6H pain 08/01/23 #90 tabs Allergies Allergy/AdvReac Type Severity Reaction Status Date / Time No Known Drug Allergies Allergy Verified 02/11/23 15:54 Review of Systems Review of Systems Narrative: Negative except as noted above Patient History Medical History Acute hearing loss of right ear Dermatitis of both ear canals Hyperlipidemia Immunity to hepatitis C determined by serologic test Social History Smoking Status: Former smoker Smoking Status: Former smoker alcohol intake frequency: holidays/special occasions only Substance Use Type: does not use Exam Initial Vital Signs Initial Vital Signs: Vital Signs Temperature 98 F 10/01/23 18:58 Pulse Rate 96 H 10/01/23 18:58 Respiratory Rate 18 10/01/23 18:58 Blood Pressure 156/89 H 10/01/23 18:58 Pulse Oximetry 99 10/01/23 18:58 Oxygen Delivery Method Room Air 10/01/23 18:58 Const: Awake, alert, no acute distress, nontoxic appearing MSK: L lateral malleolar tenderness to palpation. Moderate swelling of lateral ankle joint Skin: Warm, Dry, intact, well healed surgical incisions Neuro: AO x3, CN II-XII grossly intact, moves all extremities Psych: affect normal, mood normal, not suicidal, not homicidal Course Orders Ordered: ED Orders 10/01/23 19:10 XR ankle LT min 3V Stat Vital Signs Vital signs: Vital Signs - 8 hr 10/01/23 18:58 10/01/23 20:45 Temperature 98 F Pulse Rate 96 H 75 Respiratory Rate 18 18 Blood Pressure 156/89 H 159/88 H Pulse Oximetry 99 97 Oxygen Delivery Method Room Air Room Air MDM - Extremity Injury (Lower) Differential Diagnosis Differential diagnosis: Likely ankle sprain and strain, acute internal derangement of knee and ankle fracture MDM Narrative Medical decision making narrative: Accidental injury to left ankle. There is swelling, however patient is neurologically and vascularly intact with normal motion of the toes and palpable DP pulses. X-ray imaging shows no acute derangement of hardware. Likely sprained. Patient advised the results, she was relieved to know that there is no fracture. Placed in Saulo wrap for comfort. Patient states she has tramadol to take for pain at home and patient already has scheduled ortho follow up in 2 days. Discharge Plan Departure Patient Disposition: Home Clinical Impression: Left ankle sprain Qualifiers: Encounter type: initial encounter Instructions: DI for Ankle Sprain Prescriptions: No Action tramadol 50 mg tablet 100 mg PO Q4-6H Qty: 90 0RF naproxen 500 mg Tablet 500 mg PO BID acetaminophen [Tylenol] 325 mg Capsule 650 mg PO Q4H PRN (Reason: Pain (Scale Score 1-3)) aspirin 81 mg Capsule 81 mg PO DAILY atorvastatin [Lipitor] 20 mg tablet 20 mg PO SEEINSTR Rx Instructions: every other day Referrals: Terrence Vitale MD [Primary Care Provider] - Stand Alone Forms: Patient Portal/API
[2023-10-01 20:45] VITALS: BP 159/88; PULSE 75; RESP 18; O2SAT 97
== END 2023-10-01 20:45 | disposition home or self-care (01) ==
PROVIDERS: Emergency Provider Emergency Medicine; PCP Family Medicine
DX: S93.402A Sprain of unspecified ligament of left ankle, initial encounter (principal); W01.0XXA Fall on same level from slipping, tripping and stumbling without subsequent striking against object, initial encounter; Y99.0 Civilian activity done for income or pay
CPT/HCPCS: 73610; 99283

== ENCOUNTER → 2023-10-17 13:23 | Outpatient (CLI) | payer OTHER, SELFPAY ==
--- NOTE | 2023-10-17 13:26 | DI.CT.S_ITS ---
PROCEDURE: CT LE LT W CON INDICATIONS: PAIN IN LEFT FOOT TECHNIQUE: Noncontrast 1-1.5 mm axial sections acquired from above the tibiotalar joint to the bottom of the calcaneus, with coronal and sagittal reformats. COMPARISON: [facility] [place], CR, XR ANKLE 3+ VIEWS LEFT, 08/07/2023, 11:48. [facility], CR, XR ANKLE LT MIN 3V, 10/01/2023, 19:14. FINDINGS: Image quality: Excellent. Bones: There is diffuse osteopenia throughout the ankle and foot. Postsurgical changes are seen from bimalleolar fracture fixation. Metal hardware appears intact. Fractures appear healed. Mild degenerative changes are seen in the midfoot and forefoot without advanced degenerative changes identified. No new osseous fracture is seen. Soft tissues: Mild soft tissue edema is seen surrounding the ankle and foot. There is fatty infiltration of the intrinsic foot musculature compatible chronic denervation changes. The articular cartilages, ligaments, tendons are not well evaluated with CT. IMPRESSION: 1. Postsurgical changes from bimalleolar fracture fixation. No acute hardware complication is seen. Fractures appear healed. 2. Osteopenia throughout the ankle and foot, which may be related to generalized demineralization versus disuse osteopenia. 3. Fatty infiltration of the intrinsic foot musculature is consistent with chronic denervation changes. Approved by: Apolinar Irizarry M.D. on 10/18/2023 at 8:38
== END ==
PROVIDERS: PCP Family Medicine; Referring Provider Physician Assistant; Visit Provider Physician Assistant
DX: M85.872 Other specified disorders of bone density and structure, left ankle and foot (principal); M79.672 Pain in left foot
CPT/HCPCS: 73700

== ENCOUNTER → 2024-02-17 15:15 | Outpatient (CLI) | payer OTHER, MEDICAID, SELFPAY ==
--- NOTE | 2024-02-17 15:16 | DI.MG.S_ITS ---
BILATERAL DIGITAL SCREENING MAMMOGRAM 3D/2D WITH CAD: 02/17/2024 CLINICAL: Routine screening. Comparison is made to exams dated: 11/01/2022 mammogram, 04/04/2021 mammogram, 03/11/2021 mammogram, and 10/01/2013 mammogram - [facility]. Both breasts are heterogeneously dense, which may obscure small masses (category c / 51-75% glandular tissue). Current study was also evaluated with a Computer Aided Detection (CAD) system. No significant masses, calcifications, or other findings are seen in either breast. There has been no significant interval change. IMPRESSION: NEGATIVE There is no mammographic evidence of malignancy. A 1 year screening mammogram is recommended. Based on the Tyrer Cuzick model (a risk assessment model) the patient's lifetime risk is 12.5% and her 10 year risk is 5.1%. According to the ACR, ACS, and NCCN guidelines, an annual breast MRI exam along with mammogram is recommended if the patient's lifetime risk is 20% or greater. This exam was interpreted at Station ID: [id number]. NOTE: For mammograms, a report in lay terms will be sent to the patient. Approximately 15% of breast malignancies will not be visualized mammographically. In the management of a palpable breast mass, a negative mammogram must not discourage biopsy of a clinically suspicious lesion. Electronically Signed By: Karine starks/dmitriy:02/25/2024 12:09:59 letter sent: Normal Exam ACR BI-RADS Category 1: Negative [id number]
--- NOTE | 2024-02-17 15:16 | DI.CT.S_ITS ---
PROCEDURE: CT LUNG LOW DOSE SCREENING INDICATIONS: Hx of nicotine dependence TECHNIQUE: Noncontrast 2.0-2.5 mm thick sections acquired from the pulmonary apices to the posterior costophrenic angles. 7 mm thick axial MIP, and 5 mm coronal and sagittal reformats were then acquired. For radiation dose reduction, the following was used: automated exposure control, adjustment of mA and/or kV according to patient size. COMPARISON: [facility], CT, CT LUNG LOW DOSE SCREENING, 03/13/2022, 11:59. FINDINGS: Image quality: Diagnostic. Lower Neck: No enlarged lymph nodes. Thyroid: No thyroid nodules which require sonographic follow up, per consensus guidelines. Axillae: No enlarged lymph nodes. Chest Wall: Unremarkable. Bones: Mild degenerative changes of the spine. Lungs and Pleura: No pneumothorax or pleural effusions. Previous right upper lobe ground-glass nodules have resolved. No new suspicious pulmonary nodules or focal pulmonary consolidations. Heart: Heart size is normal. No pericardial effusion. Thoracic Vessels: The aorta and pulmonary arteries demonstrate normal size. Mediastinum and Kaur: No enlarged lymph nodes. Esophagus: No wall thickening. No hiatal hernia. Upper Abdomen: Visualized upper abdomen solid organs and bowel loops appear normal. IMPRESSION: Resolution of prior right upper lobe ground-glass nodules. No new suspicious pulmonary nodules. LUNG-RADS 1; continued annual screening, if eligible. Dictated by: Urbano Barry M.D. on 02/17/2024 at 16:35 Approved by: Urbano Barry M.D. on 02/17/2024 at 16:39
== END ==
PROVIDERS: PCP Family Medicine; Referring Provider Family Medicine; Visit Provider Family Medicine
DX: Z12.31 Encounter for screening mammogram for malignant neoplasm of breast (principal); Z12.2 Encounter for screening for malignant neoplasm of respiratory organs; Z87.891 Personal history of nicotine dependence; S82.892A Other fracture of left lower leg, initial encounter for closed fracture; E78.5 Hyperlipidemia, unspecified; R53.83 Other fatigue; R73.9 Hyperglycemia, unspecified; M54.50 Low back pain, unspecified; G89.29 Other chronic pain
CPT/HCPCS: 71271; 77063; 77067

== ENCOUNTER → 2024-02-27 08:15 | Outpatient (CLI) | payer OTHER, MEDICAID, SELFPAY ==
[2024-02-27 08:59] LABS: Add Manual Diff / Slide Review NO; Basophils Absolute Auto 100 /uL (0-100); Eosinophils Absolute Auto 100 /uL (0-450); Eosinophils Percent Auto 2.8 % (2-4); Hematocrit 39.7 % (36-46); Hemoglobin 13.4 g/dL (12.0-16.0); Lymphocytes Absolute Auto 2000 /uL (1100-4500); Mean Corpuscular HGB Conc 33.7 % (30-36); Mean Corpuscular Hemoglobin 31.6 PG (26-34); Mean Corpuscular Volume 93.8 fL (80-100); Monocytes Absolute Auto 400 /uL (0-900); Monocytes Percent Auto 7.3 % (3-14); Neutrophils Absolute Auto 2600 /uL (1500-7000); Neutrophils Percent Auto 49.9 % (50-75); Platelet Count 270 X10^3/uL (150-400); Red Blood Cell Count 4.23 X10^6/uL (4.0-5.2); Red Cell Distribution Width 14.1 % (11.6-14.8); White Blood Cell Count 5.2 X10^3/uL (4.5-11.0)
[2024-02-27 09:26] LABS: Alanine Aminotransferase 29 IU/L (<35); Albumin 4.2 g/dL (3.5-5.0); Albumin Globulin Ratio 1.3 (1.0-2.8); Alkaline Phosphatase 79 U/L (38-126); Aspartate Aminotransferase 34 IU/L (14-36); BUN Creatinine Ratio 28.6 (6-22); Bilirubin Total 0.7 mg/dL (0.2-1.3); Blood Urea Nitrogen 22 mg/dL (7-17); Calcium 8.8 mg/dL (8.4-10.2); Carbon Dioxide 27 mmol/L (22-32); Chloride 107 mmol/L (98-107); Cholesterol 166 mg/dL (140-199); Estimated Glomerular Filt Rate > 60 mL/min (>60); Globulin 3.2 g/dL (1.7-4.1); Glucose 96 mg/dL (80-110); HDL Cholesterol 71 mg/dL (40-60); HEMOLYSIS < 15 (0-50); LDL Cholesterol Calculated 66 mg/dL (<100); Potassium 4.1 mmol/L (3.4-5.1); Sodium 140 mmol/L (137-145); Total Protein 7.4 g/dL (6.3-8.2); Triglycerides 145 mg/dL (35-150)
[2024-02-27 09:55] LABS: TSH w/ Reflex to FT4 3.05 uIU/mL (0.47-4.68)
[2024-02-27 10:21] LABS: Microalbumin Urine Random < 0.6 mg/dL (0-1.6)
[2024-02-28 04:09] LABS: Apolipoprotein B 65 mg/dL (<90)
== END ==
LOC: LAB 08:16
PROVIDERS: PCP Family Medicine; Referring Provider Family Medicine; Visit Provider Family Medicine
DX: S82.892A Other fracture of left lower leg, initial encounter for closed fracture (principal); E78.5 Hyperlipidemia, unspecified; R53.83 Other fatigue; R73.9 Hyperglycemia, unspecified; G89.29 Other chronic pain; M54.50 Low back pain, unspecified
CPT/HCPCS: 36415; 80053; 80061; 82043; 82172; 82570; 84443; 85025

== ENCOUNTER → 2024-05-13 11:06 | Outpatient (CLI) | payer OTHER, MEDICAID, SELFPAY ==
[2024-05-13 11:33] LABS: Estimated Glomerular Filt Rate > 60 mL/min (>60)
== END ==
PROVIDERS: PCP Family Medicine; Referring Provider Radiology Diagnostic Radiology; Visit Provider Radiology Diagnostic Radiology
DX: K43.9 Ventral hernia without obstruction or gangrene (principal)
CPT/HCPCS: 36415; 82565

== ENCOUNTER → 2024-05-14 10:43 | Outpatient (CLI) | payer OTHER, MEDICAID, SELFPAY ==
--- NOTE | 2024-05-14 10:44 | DI.CT.S_ITS ---
PROCEDURE: CT ABDOMEN PELVIS W CON INDICATIONS: rule out hernia TECHNIQUE: After the administration of intravenous contrast, axial sections acquired from the lung bases to the pubic symphysis. Coronal and sagittal reformats were performed. For radiation dose reduction, the following was used: automated exposure control, adjustment of mA and/or kV according to patient size. COMPARISON: None. FINDINGS: Image quality: Diagnostic. Lower Chest: Small hiatal hernia. ABDOMEN: Liver: Benign hepatic cyst in segment 2 of the liver. Additional subcentimeter hypoattenuating lesions, too small to characterize by CT. Gallbladder: No radiopaque gallstones or wall thickening. Biliary ducts: No biliary dilation. Pancreas: No ductal dilation. Spleen: Size is within normal limits. Adrenal Glands: No adrenal nodules. Kidneys and Ureters: No hydronephrosis. No solid mass. No complex renal cystic lesion which requires follow up. Stomach and Bowel: Normal colonic caliber, without significant wall thickening. Colonic diverticulosis without evidence of diverticulitis. Normal appendix. Peritoneum: No abnormal intraperitoneal fluid. No free air. Ventral Wall: Small umbilical hernia containing fat. Abdominal Nodes: No retroperitoneal or mesenteric adenopathy by size criteria. Vessels: Aorta and inferior vena cava are normal in size. Dilated left gonadal vasculature. PELVIS: Pelvic Organs: Unremarkable. Bladder: No bladder wall thickening, accounting for underdistention. Pelvic Nodes: No enlarged lymph nodes. Miscellaneous: No inguinal hernias are seen. Bones: No aggressive osseous abnormality. IMPRESSION: Small umbilical hernia containing fat. No additional abdominal hernias. Dilated left gonadal vasculature, which can be seen in the clinical setting of pelvic congestion syndrome. Dictated by: Austin Frausto M.D. on 05/14/2024 at 14:44 Approved by: Austin Frausto M.D. on 05/14/2024 at 14:53
== END ==
LOC: CT 10:44
PROVIDERS: PCP Family Medicine; Referring Provider Surgery; Visit Provider Surgery
DX: K43.9 Ventral hernia without obstruction or gangrene (principal); K42.9 Umbilical hernia without obstruction or gangrene; K44.9 Diaphragmatic hernia without obstruction or gangrene; K76.89 Other specified diseases of liver; K57.90 Diverticulosis of intestine, part unspecified, without perforation or abscess without bleeding
CPT/HCPCS: 74177; Q9967

== ENCOUNTER 2024-05-26 13:12 | Emergency (ER) | payer OTHER, MEDICAID, SELFPAY ==
[2024-05-26 13:22] VITALS: BP 168/95; PULSE 75; RESP 16; TEMP 36.5; O2SAT 100; BMI 23.5
--- NOTE | 2024-05-26 13:26 | DI.RAD.S_ITS ---
PROCEDURE: XR CHEST 1V INDICATIONS: chest pain TECHNIQUE: One view of the chest was acquired. COMPARISON: [facility], CR, XR CHEST 1V, 09/09/2021, 13:49. FINDINGS: Surgical changes and devices: None. Lungs and pleura: Lungs are clear. No pleural effusions or pneumothorax. Mediastinum: Mediastinal contours appear normal. Heart size is normal. Bones and chest wall: No suspicious bony lesions. Overlying soft tissues appear unremarkable. IMPRESSION: No acute cardiopulmonary pathology. Dictated by: Gopi Rothman M.D. on 05/26/2024 at 14:39 Approved by: Gopi Rothman M.D. on 05/26/2024 at 14:39
--- NOTE | 2024-05-26 13:33 | ED_ITS ---
HPI - General Adult General Chief complaint: Hypertension Stated complaint: high BP, dizzy, palpitations Time Seen by Provider: 05/26/24 13:33 Source: patient Mode of arrival: Wheelchair History of Present Illness HPI narrative: 58-year-old woman with a history of hyperlipidemia presents noting that she she has had some palpitations over the last couple of days and at the dentist office this morning noted that her blood pressure was quite high. Comes in for further evaluation. She also notes that at a previous doctor appointment a month or 2 ago she has had normal blood pressures. She does not check her blood pressure and has never been diagnosed with hypertension. She has no chest pain, shortness for breath, headaches. She describes herself as terrified of needles however she ?loves her dentist? so this this could not have possibly caused an elevated blood pressure. Related Data Home Medications Medication Instructions Recorded Confirmed acetaminophen 325 mg capsule 650 mg PO Q4H PRN Pain (Scale 10/01/23 02/05/24 (Tylenol) Score 1-3) aspirin 81 mg capsule 81 mg PO DAILY 10/01/23 02/05/24 gabapentin 300 mg capsule 300 mg PO DAILY 02/03/24 02/05/24 meloxicam 15 mg tablet 15 mg PO DAILY Swelling 04/08/24 04/08/24 Previous Rx's Medication Instructions Recorded atorvastatin 20 mg tablet (Lipitor) 20 mg PO .QOD #45 tabs 02/03/24 Allergies Allergy/AdvReac Type Severity Reaction Status Date / Time No Known Drug Allergies Allergy Verified 05/26/24 13:22 Review of Systems Review of Systems Narrative: Pertinent positive and negative findings as per HPI Patient History Medical History Closed left ankle fracture Immunity to hepatitis C determined by serologic test Acute hearing loss of right ear Hyperlipidemia Dermatitis of both ear canals Social History Smoking Status: Former smoker Smoking Status: Former smoker alcohol intake frequency: holidays/special occasions only Substance Use Type: does not use Exam Initial Vital Signs Initial Vital Signs: Vital Signs Temperature 97.7 F 05/26/24 13:22 Pulse Rate 75 05/26/24 13:22 Respiratory Rate 16 05/26/24 13:22 Blood Pressure 168/95 H 05/26/24 13:22 Pulse Oximetry 100 05/26/24 13:22 Oxygen Delivery Method Room Air 05/26/24 13:22 General: Healthy appearing, in no acute distress. Able to give a complete and coherent history. Well-nourished well-developed HEENT: Moist mucous membranes, normal sclera with reactive pupils, Respiratory: Lungs are clear to auscultation, no wheezing no rales no rhonchi. Full and symmetrical air movement Cardiac: Regular rate and rhythm no murmurs no bruits Abdomen: Soft, nontender, good bowel tones, no flank pain Skin: Warm and dry, no rashes Neurologic: Grossly neurologically intact with no obvious asymmetries or abnormalities Extremities: No trauma, well perfused Psych: Cooperative, appropriate insight and affect Course Orders Ordered: ED Orders 05/26/24 13:26 XR chest 1V Stat EKG-12 Lead Stat 05/26/24 13:36 Complete Blood Count AUTO DIFF Stat Comprehensive Metabolic Panel Stat Lipase Stat Magnesium Stat NT-proBNP (BNP-Adult 18+) Stat PTT Partial Thromboplastin Jonnie Stat Prothrombin Time INR Stat Troponin & CK Cardiac Panel Stat 05/26/24 13:46 TSH w/ Reflex to FT4 Stat Vital Signs Vital signs: Vital Signs - 8 hr 05/26/24 13:22 05/26/24 13:34 05/26/24 13:35 Temperature 97.7 F Pulse Rate 75 Respiratory Rate 16 Blood Pressure 168/95 H 203/120 H Pulse Oximetry 100 95 Oxygen Delivery Method Room Air 05/26/24 13:35 05/26/24 14:00 05/26/24 14:00 Temperature Pulse Rate 86 73 Respiratory Rate 14 Blood Pressure 167/99 H Pulse Oximetry 98 97 Oxygen Delivery Method Medical Decision Making Lab Data 05/26/24 13:36 05/26/24 13:36 Labs: Lab Results 05/26/24 Range/Units 13:36 WBC 7.2 (4.5-11.0) X10^3/uL RBC 4.34 (4.0-5.2) X10^6/uL Hgb 14.0 (12.0-16.0) g/dL Hct 42.0 (36-46) % MCV 96.7 (80-100) fL MCH 32.3 (26-34) PG MCHC 33.4 (30-36) % RDW 14.0 (11.6-14.8) % Plt Count 291 (150-400) X10^3/uL Neut % (Auto) 71.8 (50-75) % Lymph % (Auto) 21.0 L (25-40) % [place] % (Auto) 5.0 (3-14) % Eos % (Auto) 0.8 L (2-4) % Baso % (Auto) 1.4 (0-2) % Neut # (Auto) 5100 (6517-4842) /uL Lymph # (Auto) 1500 (0675-9749) /uL [place] # (Auto) 400 (0-900) /uL Eos # (Auto) 100 (0-450) /uL Baso # (Auto) 100 (0-100) /uL PT 9.6 (9.4-12.5) SECONDS INR 0.8 L (0.9-1.3) APTT 37 H (25.1-36.5) SECONDS MDM Narrative Medical decision making narrative: CC: Palpitations, elevated blood pressure today Complicating co-morbidities: Hyperlipidemia, no prior history of hypertension Data collected from: patient Medical records reviewed: Primary care and gynecology notes from the last couple of months reviewed -blood pressure has been consistently below 120/70 with all documented visits Differential considered: White coat hypertension, hypothyroidism, developing hypertension Exam documented above, pertinent findings include: Exam is entirely benign Lab Test results independently reviewed as above. Pertinent findings: CBC is unremarkable Chemistries are reassuring. Slightly elevated AST and ALT. Troponin is undetectable ProBNP is appropriate TSH is still pending Independently reviewed EKG: EKG shows sinus rhythm, no acute ischemic changes Imaging studies independently reviewed: Chest x-ray is unremarkable, no cardiomegaly appreciated Discussion: Patient presents complaining of palpitations and blood pressure elevated while at the dentist's office. Blood pressure still remains elevated while she is here in the emergency department however previous doctor visit show that has been quite low. We discussed the importance of documenting blood pressure readings over longer timeframe than a single ER visit prior to starting any medications. Have suggested that she buy a blood pressure cuff and check blood pressures once a day to once every other day, keeping track of the numbers and following with her primary care doctor to review those numbers. Talked about the importance of getting back to absolutely 0 cigarettes a day and exercise as a great way to keep blood pressures in normal ranges without medications. Reassurance is given and she is safe for discharge Discharge Plan Departure Patient Disposition: Home Clinical Impression: Elevated blood pressure reading, Heart palpitations Instructions: DI for High Blood Pressure, DI for Palpitations Activity Restrictions/Additional Instructions: Thank you for coming in today Your blood work was very reassuring. Your chest x-ray does not show any significant abnormalities, the size and shape of your heart is absolutely normal. We did an EKG to look at the electrode rhythm of your heart, also normal regarding your palpitations, I did check your thyroid level, that results are still pending and you can review this with your primary physician. You are not anemic and there are no signs of infection. A diagnosis of essential hypertension requires multiple readings. Your blood pressure is somewhat elevated today, however, all of the readings previously with doctor visits have been quite normal. I would recommend that you buy a blood pressure cuff at 1 of the local drug stores. Checking your blood pressure once a day or every other day and keeping track of the numbers is going to be appropriate and helping with making a diagnosis. I would recommend that you follow up with your primary care physician, please take this list of blood pressure readings. As always, diet and lifestyle changes or most appropriate before any medications are added. Getting yourself back to no cigarettes a day and making sure that you are active, as little as 20-30 minutes of walking a day can sometimes be the difference between needing medications and not. The reason to return to the emergency department with concerns for elevated blood pressures are blood pressures that are higher than 220/110 AND having symptoms that might suggest a heart attack, stroke, confusion. If you feel well in the blood pressure number is high, please sit down and relax, recheck at the next day. Prescriptions: No Action atorvastatin [Lipitor] 20 mg tablet 20 mg PO .QOD Qty: 45 3RF meloxicam 15 mg tablet 15 mg PO DAILY gabapentin 300 mg capsule 300 mg PO DAILY acetaminophen [Tylenol] 325 mg Capsule 650 mg PO Q4H PRN (Reason: Pain (Scale Score 1-3)) aspirin 81 mg Capsule 81 mg PO DAILY Referrals: Terrence Vitale MD [Primary Care Provider] - Stand Alone Forms: Patient Portal/API
[2024-05-26 13:34] VITALS: O2SAT 95
[2024-05-26 13:35] VITALS: BP 203/120; PULSE 86; O2SAT 98
--- NOTE | 2024-05-26 13:43 | EKG_ITS ---
[place] [address] [address] [place] [id number] Test Date: 2024-05-26 Pat Name: Ale Jones Department: [facility] Room: Gender: Female Discharge Planner: JORDAN : 1965 Requested By: Order Number: [id number] Reading MD: Geovani Dallas MD Measurements Intervals [place] Rate: 72 P: 37 MI: 122 QRS: 9 QRSD: 78 T: 2 QT: 400 QTc: 438 Interpretive Statements Normal sinus rhythm Cannot rule out Inferior infarct , age undetermined Electronically Signed On 05-26-2024 16:18:23 PDT by Geovani Dallas MD
[2024-05-26 13:45] LABS: Add Manual Diff / Slide Review NO; Basophils Absolute Auto 100 /uL (0-100); Basophils Percent Auto 1.4 % (0-2); Eosinophils Absolute Auto 100 /uL (0-450); Eosinophils Percent Auto 0.8 % (2-4); Lymphocytes Absolute Auto 1500 /uL (1100-4500); Mean Corpuscular HGB Conc 33.4 % (30-36); Mean Corpuscular Hemoglobin 32.3 PG (26-34); Mean Corpuscular Volume 96.7 fL (80-100); Monocytes Absolute Auto 400 /uL (0-900); Neutrophils Absolute Auto 5100 /uL (1500-7000); Neutrophils Percent Auto 71.8 % (50-75); Platelet Count 291 X10^3/uL (150-400); Red Blood Cell Count 4.34 X10^6/uL (4.0-5.2); White Blood Cell Count 7.2 X10^3/uL (4.5-11.0)
[2024-05-26 13:55] LABS: INR 0.8 (0.9-1.3); Prothrombin Time 9.6 SECONDS (9.4-12.5)
[2024-05-26 13:57] LABS: PTT Partial Thromboplastin Tim 37 SECONDS (25.1-36.5)
[2024-05-26 14:00] VITALS: BP 167/99; PULSE 73; RESP 14; O2SAT 97
[2024-05-26 14:09] LABS: Alanine Aminotransferase 52 IU/L (<35); Albumin 4.5 g/dL (3.5-5.0); Albumin Globulin Ratio 1.2 (1.0-2.8); Alkaline Phosphatase 91 U/L (38-126); Aspartate Aminotransferase 50 IU/L (14-36); BUN Creatinine Ratio 20.3 (6-22); Bilirubin Total 0.6 mg/dL (0.2-1.3); Blood Urea Nitrogen 12 mg/dL (7-17); Calcium 9.6 mg/dL (8.4-10.2); Carbon Dioxide 27 mmol/L (22-32); Chloride 103 mmol/L (98-107); Creatine Kinase 110 U/L (30-135); Estimated Glomerular Filt Rate > 60 mL/min (>60); Globulin 3.8 g/dL (1.7-4.1); Glucose 114 mg/dL (80-110); HEMOLYSIS < 15 (0-50); Lipase 151 U/L (23-300); Magnesium 1.9 mg/dL (1.6-2.3); Potassium 4.1 mmol/L (3.4-5.1); Sodium 137 mmol/L (137-145); Total Protein 8.3 g/dL (6.3-8.2)
[2024-05-26 14:28] LABS: NT-proBNP (BNP-Adult 18+) 30 pg/mL (<125); Troponin I < 0.012 ng/mL (0.01-0.034)
[2024-05-26 14:30] VITALS: BP 142/92; PULSE 78; RESP 22; O2SAT 100
[2024-05-26 15:08] LABS: TSH w/ Reflex to FT4 1.27 uIU/mL (0.47-4.68)
--- NOTE | 2024-05-26 15:32 | PC.NURSE ---
States she has been feeling under the weather/fatigued the last couple days. States she has had sharp back pain. Pt also was told at dental office her blood pressure was very high. Pt denies REDDY or vision change. Pt walks w/ cane d/t recent injury/surgery. Pt respirations regular and unlabored. Pt states she has not been checking her BP at home but has a BP device at home.
== END 2024-05-26 15:34 | disposition home or self-care (01) ==
PROVIDERS: Emergency Provider Emergency Medicine; PCP Family Medicine
DX: R03.0 Elevated blood-pressure reading, without diagnosis of hypertension (principal); R00.2 Palpitations; R07.9 Chest pain, unspecified
CPT/HCPCS: 71045; 80053; 82550; 83690; 83735; 83880; 84443; 84484; 85025; 85610; 85730; 93005; 93010; 99283; 99284

== ENCOUNTER 2024-06-16 06:26 | Day surgery (SDC) | payer OTHER, MEDICAID, SELFPAY ==
[2024-06-15 10:57] VITALS: BMI 23.5
[2024-06-16] VITALS (8 sets, daily range): BP systolic 117–147; BP diastolic 75–102; PULSE 84–112; RESP 9–22; TEMP 36.1–36.4; O2SAT 95–99; BMI 23.3
[2024-06-16] MEDS: LACTATED RINGERS 1,000 ML 42 ML IV (07:08)
--- NOTE | 2024-06-16 07:20 | SUR.OPER ---
Supine on padded OR bed, head on pillow, arms secured on padded arm boards at <90 degrees abduction, legs uncrossed, safety belt at thigh, tape over blanket over lower legs.
--- NOTE | 2024-06-16 07:42 | PM.PREOP ---
Pre-operative Note COVID-19 COVID-19 status: Not tested Interval Note History & Physical reviewed/Exam performed by Physician: Yes Changes to H&P: No ASA Class (for procedural sedation): II
[2024-06-16] MEDS: CEFAZOLIN 2 GM/100 ML PREMIX 100 ML IV (07:52)
[2024-06-16] MEDS: BUPIVACAINE 0.5% W/ EPI (PF) 30 ML VIAL INJ (08:01)
--- NOTE | 2024-06-16 08:40 | P.OP_ITS ---
Operative Date/Time/Diagnoses Date of procedure: 06/16/24 Time of procedure: 08:40 Pre-op diagnosis: Umbilical hernia Post-op diagnosis: same Procedure & Clinicians Procedure: Open umbilical hernia repair with mesh Same procedure as scheduled: Yes Surgeon: Yo Rodriguez Medical Research Assistant: Hitesh Aranda Anesthesia Type: General Operative Notes Procedure in detail: Ancef was administered. The patient was brought to the operating room, placed on the table in the supine position and general endotracheal anesthesia was induced. The abdomen was prepped and draped in the usual fashion. A time-out was performed. A 5 cm curvilinear incision was made inferior to the umbilicus. The hernia sac was dissected free from the surrounding subcutaneous adipose tissue. The sac was dissected off the umbilical stalk using a combination of cautery, sharp and blunt dissection. The hernia sac was dissected free from the fascial ring and allowed to drop back down into the abdomen. The fascial defect was about 1.5 cm. The fascia was then closed transversely with multiple interrupted 0 Ethibond sutures. The subcutaneous adipose tissue was cleared off of the anterior sheath circumferentially about 2 cm in each direction. A piece of polypropylene mesh was trimmed to fit over the fascial closure and secured with Tisseel. Once the Tisseel was dried the umbilical skin was tacked down to the mesh with a single 3-0 Vicryl stitch. The skin was closed with multiple interrupted 3-0 Vicryl dermal sutures followed by a running 4 Monocryl subcuticular closure. EBL: 10 mL Steri-Strips were applied and an abdominal binder was applied. Hitesh MARTINEZ provided assistance with exposure, retraction and closure of incisions. Post-operative Condition: stable Disposition: PACU
[2024-06-16] MEDS: fentaNYL 100 MCG/2 ML INJ IV (08:44)
[2024-06-16] MEDS: OXYCODONE/ACETAMINOPHEN 5/325 TABLET 1 TAB PO ×2 (08:55→09:24)
== END 2024-06-16 09:53 | disposition home or self-care (01) ==
PROVIDERS: PCP Family Medicine; Referring Provider Surgery; Visit Provider Surgery
PROC: (CPT 49591; principal; 2024-06-16 07:45)
DX: K42.9 Umbilical hernia without obstruction or gangrene (principal); E78.5 Hyperlipidemia, unspecified; Z87.891 Personal history of nicotine dependence
CPT/HCPCS: 49591; C1781; J0690; J1100; J1885; J2405; J2704; J3010

== ENCOUNTER → 2024-07-17 13:34 | Outpatient (CLI) | payer OTHER, MEDICAID, SELFPAY ==
--- NOTE | 2024-07-17 13:35 | DI.RAD.S_ITS ---
PROCEDURE: XR CHEST 2V INDICATIONS: Cough TECHNIQUE: 2 views of the chest were acquired. COMPARISON: [facility], CR, XR CHEST 1V, 05/26/2024, 13:44. [facility], CR, XR CHEST 1V, 09/09/2021, 13:49. FINDINGS: Surgical changes and devices: None. Lungs and pleura: Lungs are clear. No pleural effusions or pneumothorax. Mediastinum: Mediastinal contours are normal. Heart size is normal. Bones and chest wall: No suspicious bony abnormalities. Soft tissues appear unremarkable. IMPRESSION: No acute cardiopulmonary abnormality is seen. Dictated by: Khris Virk M.D. on 07/17/2024 at 14:02 Approved by: Khris Virk M.D. on 07/17/2024 at 14:02
== END ==
PROVIDERS: PCP Family Medicine; Referring Provider Nurse Practitioner Family; Visit Provider Nurse Practitioner Family
DX: R05.9 Cough, unspecified (principal)
CPT/HCPCS: 71046

== ENCOUNTER 2024-08-13 10:15 | Day surgery (SDC) | payer OTHER, MEDICAID, SELFPAY ==
--- NOTE | 2024-08-13 | PATH_ITS ---
[facility] Accession Number: [id number] No. of containers..02 Tissue . 01 Material submitted: . PART A: colon - ASCENDING POLYP PART B: rectum - RECTAL POLYP . 01 Diagnosis: A. 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 See comment. No invasive malignancy identified. . B. RECTAL POLYP, BIOPSY: Hyperplastic polyp. MRV 08/19/2024 1423 Local . 01 Comment: A. Clinical correlation is recommended to ensure that the lesion is entirely removed. . As part of ongoing quality control projectionist, part A is also reviewed by Dr. Piyush Kwong, who agrees with the interpretation. . 01 Electronically signed: . Magdalena Pollack MD, Pathologist NPI- [id number] . 01 Gross description: . A. Received in formalin with two patient identifiers and ascending colon polyp, are multiple leroy soft tissue fragments, the largest two measuring 1.0 x 0.8 x 0.5 cm and 1.2 x 0.9 x 0.8 cm. Both are inked, sectioned, and submitted in A1 and A2. The remaining fragments in the bottle are filtered and submitted in A3. B. Received in formalin with two patient identifiers and rectal, are two leroy and brown soft tissue fragments measuring 0.5 x 0.4 x 0.4 cm and 1.0 x 0.7 x 0.6 cm. The larger fragment is inked and sectioned. All submitted in B1. ([id number]) /MRV 08/14/2024 1318 Local . 01 Pathologist provided ICD-10: D12.2, D12.8 . 01 CPT . 313122, 157683 Specimen Comment: A courtesy copy of this report has been sent to [phone] Performed at: [address] [address], [place], [place] [id number] MD Ashok Kwong MD Phone: [phone]
[2024-08-13 11:33] VITALS: BP 146/86; PULSE 66; RESP 12; TEMP 36.4; O2SAT 99
--- NOTE | 2024-08-13 11:53 | P.HP_ITS ---
History of Present Illness History of Present Illness Date Patient Seen: 08/13/24 Time Patient Seen: 11:53 Chief complaint: Colonoscopy Narrative: Ale is a 59-year-old woman who is here for her first colonoscopy. No known family history of colon cancer. COUNTS INCLUDE 234 BEDS AT THE [facility] Medical History Closed left ankle fracture Immunity to hepatitis C determined by serologic test Acute hearing loss of right ear Hyperlipidemia Dermatitis of both ear canals Social History household members: significant other Smoking Status: Former smoker alcohol intake: current Meds Home Medications and Allergies Home Medications Medication Instructions Recorded Confirmed Type acetaminophen 325 mg capsule 650 mg PO Q4H PRN Pain (Scale 10/01/23 07/17/24 History (Tylenol) Score 1-3) aspirin 81 mg capsule 81 mg PO DAILY 10/01/23 08/13/24 History gabapentin 300 mg capsule 300 mg PO TID 02/03/24 08/13/24 History meloxicam 15 mg tablet 15 mg PO DAILY Swelling 04/08/24 08/13/24 History atorvastatin 20 mg tablet (Lipitor) 20 mg PO DAILY #45 tabs 06/02/24 08/13/24 Rx omeprazole 40 mg capsule,delayed 40 mg PO DAILY PRN Acid Reflux 06/15/24 08/13/24 History release benzonatate 200 mg capsule 200 mg PO BID PRN cough #28 caps 07/17/24 08/13/24 Rx Allergies Allergy/AdvReac Type Severity Reaction Status Date / Time No Known Drug Allergies Allergy Verified 08/13/24 11:28 Exam Vital Signs (past 8 hours): - 08/13/24 11:33 Temperature 97.6 F Pulse Rate 66 Respiratory Rate 12 Blood Pressure 146/86 H Pulse Oximetry 99 Oxygen Delivery Method Room Air Oxygen Delivery Method Room Air Const General: No acute distress Assessment & Plan Assessment and plan (1) Colon cancer screening: Status: Inactive Plan Colonoscopy Time-Based Coding :: [TOTAL MINUTES] spent with patient and on the chart (including review of chart, obtaining history, exam, reviewing outside data, placing orders, documenting exam and treatment plan, and counseling patient) on [DATE].
--- NOTE | 2024-08-13 13:11 | PM.OP.COLON ---
Operative Date/Time/Diagnoses Date of procedure: 08/13/24 Time of procedure: 13:12 Pre-op diagnosis: Colon cancer screening Post-op diagnosis: same Procedure & Clinicians Study performed: Colonoscopy Same procedure as scheduled: Yes Surgeon: Yo Rodriguez Procedure Notes Procedure in detail: Surgeon: Yo Rodriguez MD Anesthesia: Karl Cortez CRNA Procedure: The patient was brought to the endoscopy suite, placed in left lateral decubitus position. The patient was connected to monitoring devices. A time-out was performed. Sedation was administered. Once the patient was adequately sedated, a digital rectal exam was performed and was normal. The scope was then inserted and advanced to the cecum where the appendiceal orifice was identified and photographed. The scope was then slowly withdrawn over greater than 6 minutes. The mucosa was thoroughly inspected. There was a 2-2.5 cm sessile polyp in the ascending colon. It was between 2 folds and difficult to access so we performed a saline lift followed by piecemeal resection with a hot snare. There was 7 mm polyp in the rectum removed with a hot snare. The prep was subpar. The scope was retroflexed in the rectum. No other abnormalities were found. The scope was straightened and removed. The patient was awakened and brought to recovery. Scope withdrawal time: 24 minutes Sedation time: 31 minutes EBL: 5 mL Findings: 2.5 mm sessile polyp in the ascending colon, 7 mm polyp in the rectum Post-procedure Disposition: PACU
[2024-08-13 13:14] VITALS: BP 122/78; PULSE 89; RESP 14; TEMP 36.1; O2SAT 98
[2024-08-13 13:19] VITALS: BP 129/89; PULSE 76; RESP 14; O2SAT 98
[2024-08-13 13:24] VITALS: BP 143/92; PULSE 70; RESP 18; TEMP 36.7; O2SAT 98
[2024-08-13 13:31] VITALS: BP 124/74; PULSE 75; RESP 16; TEMP 36.8; O2SAT 98
== END 2024-08-13 13:36 | disposition home or self-care (01) ==
PROVIDERS: PCP Family Medicine; Referring Provider Surgery; Visit Provider Surgery
PROC: 0DJD8ZZ Inspection of Lower Intestinal Tract, Via Natural or Artificial Opening Endoscopic (ICD-10-PCS; CPT 45378; principal; 2024-08-13 11:30)
DX: Z12.11 Encounter for screening for malignant neoplasm of colon (principal); K62.1 Rectal polyp; D12.2 Benign neoplasm of ascending colon
CPT/HCPCS: 45385; J2704

== ENCOUNTER 2024-11-21 17:39 | Emergency (ER) | payer OTHER, SELFPAY ==
[2024-11-21] VITALS (12 sets, daily range): BP systolic 125–178; BP diastolic 73–96; PULSE 71–94; RESP 13–17; TEMP 37.2; O2SAT 96–98; BMI 22.9
--- NOTE | 2024-11-21 19:11 | EKG_ITS ---
[address] [address] Test Date: 2024-11-21 Pat Name: Ale Jones Department: [facility] Room: Gender: Female Diabetic Educator: YURI : 1965 Requested By: Order Number: [id number] Reading MD: Geovani Dallas MD Measurements Intervals [place] Rate: 78 P: 46 IN: 132 QRS: 18 QRSD: 78 T: 20 QT: 378 QTc: 430 Interpretive Statements Normal sinus rhythm Electronically Signed On 11-22-2024 15:02:53 PDT by Geovani Dallas MD
[2024-11-21 19:49] LABS: Alanine Aminotransferase 32 IU/L (<35); Albumin 4.2 g/dL (3.5-5.0); Albumin Globulin Ratio 1.3 (1.0-2.8); Alkaline Phosphatase 71 U/L (38-126); Aspartate Aminotransferase 40 IU/L (14-36); BUN Creatinine Ratio 30.1 (6-22); Bilirubin Total 0.4 mg/dL (0.2-1.3); Blood Urea Nitrogen 22 mg/dL (7-17); Calcium 9.4 mg/dL (8.4-10.2); Carbon Dioxide 27 mmol/L (22-32); Chloride 102 mmol/L (98-107); Estimated Glomerular Filt Rate > 60 mL/min (>60); Globulin 3.2 g/dL (1.7-4.1); Glucose 132 mg/dL (80-110); HEMOLYSIS 16 (0-50); Lipase 249 U/L (23-300); Potassium 4.4 mmol/L (3.4-5.1); Sodium 136 mmol/L (137-145); Total Protein 7.4 g/dL (6.3-8.2)
[2024-11-21 19:51] LABS: Add Manual Diff / Slide Review NO; Basophils Absolute Auto 100 /uL (0-100); Basophils Percent Auto 0.9 % (0-2); Eosinophils Absolute Auto 100 /uL (0-450); Eosinophils Percent Auto 1.8 % (2-4); Hemoglobin 13.2 g/dL (12.0-16.0); Lymphocytes Absolute Auto 2100 /uL (1100-4500); Lymphocytes Percent Auto 34.7 % (25-40); Mean Corpuscular HGB Conc 33.7 % (30-36); Monocytes Absolute Auto 500 /uL (0-900); Monocytes Percent Auto 7.8 % (3-14); Neutrophils Absolute Auto 3400 /uL (1500-7000); Neutrophils Percent Auto 54.8 % (50-75); Platelet Count 276 X10^3/uL (150-400); Red Blood Cell Count 4.11 X10^6/uL (4.0-5.2); Red Cell Distribution Width 13.6 % (11.6-14.8); White Blood Cell Count 6.1 X10^3/uL (4.5-11.0)
--- NOTE | 2024-11-21 19:52 | ED_ITS ---
HPI - Abdominal Pain General Chief Complaint: Abdominal Pain Stated Complaint: acute abd pain ULQ Time Seen by Provider: 11/21/24 19:51 Source: patient, RN notes reviewed and old records reviewed Mode of arrival: Ambulatory Limitations: no limitations History of Present Illness HPI narrative: 59-year-old female presents with complaint of left upper abdominal pain starting about 4:00 a.m. in the morning. Patient states she woke up with it it has been persistent since then has not been improving. Patient states that it was worse with movement, she states that is better if she was still. It has not pleuritic. Denies any nausea or vomiting. [place] warm earlier today and clammy. She had a little bit of loose stools diarrhea like denies any bright red blood melanotic stools. No urinary symptoms. Pain has been persistent and not resolved. States she takes gabapentin and meloxicam for her right ankle has had some persistent pain had ankle surgery x2. She does take an aspirin 324 mg for DVT prevention she had a cast on that leg for some time. She was not wearing 1 anymore. No known drug allergies. Notes she had a umbilical hernia repair in August, no prior chest surgeries. Former smoker, occasional alcohol, no recreational drugs. Dr. Vitale is her primary care physician. Related Data Home Medications Medication Instructions Recorded Confirmed acetaminophen 325 mg capsule 650 mg PO Q4H PRN Pain (Scale 10/01/23 07/17/24 (Tylenol) Score 1-3) aspirin 81 mg capsule 81 mg PO DAILY 10/01/23 08/13/24 gabapentin 300 mg capsule 300 mg PO TID 02/03/24 08/13/24 meloxicam 15 mg tablet 15 mg PO DAILY Swelling 04/08/24 08/13/24 omeprazole 40 mg capsule,delayed 40 mg PO DAILY PRN Acid Reflux 06/15/24 08/13/24 release Previous Rx's Medication Instructions Recorded atorvastatin 20 mg tablet (Lipitor) 20 mg PO DAILY #45 tabs 06/02/24 benzonatate 200 mg capsule 200 mg PO BID PRN cough #28 caps 07/17/24 amoxicillin 875 mg-potassium 1 tab PO BID #14 tabs 11/21/24 clavulanate 125 mg tablet Allergies Allergy/AdvReac Type Severity Reaction Status Date / Time No Known Drug Allergies Allergy Verified 11/21/24 17:50 Review of Systems Review of Systems ROS Unobtainable: All systems reviewed & are unremarkable except as noted in HPI and below Patient History Medical History Closed left ankle fracture Immunity to hepatitis C determined by serologic test Acute hearing loss of right ear Hyperlipidemia Dermatitis of both ear canals Social History household members: significant other Smoking Status: Former smoker alcohol intake: current Smoking Status: Former smoker alcohol intake frequency: holidays/special occasions only Exam Narrative Exam Narrative: GENERAL: Alert and oriented x three, female mild distress, patient was fairly comfortable lying in the bed but when she gets up to walk to the bathroom it is very uncomfortable with movement. HEENT: Head normocephalic, atraumatic, EOMI, pupils reactive, face symmetric, moist mucous membranes NECK: Supple, full range of motion CARDIOVASCULAR: Regular rate and rhythm without murmurs, rubs or gallops. RESPIRATORY: Breath sounds equal bilaterally, no wheezes rales or rhonchi. ABDOMEN: Soft, positive for left-sided abdominal mid abdomen, tract little bit more upwards than down words. Normoactive bowel sounds all 4 quadrants. No guarding or rebound, rigidity, no mass, no pulsatile mass or bruit. No rash or skin change noted. : No CVA tenderness EXTREMITIES: Normal range of motion, no clubbing or edema. Neurovascularly intact NEUROLOGICAL: Cranial nerves II through XII grossly intact. Moving all extremities SKIN: Warm, dry, no petechiae, no rashes or lesions. Initial Vital Signs Initial Vital Signs: Vital Signs Temperature 98.9 F 11/21/24 17:46 Pulse Rate 89 11/21/24 17:46 Respiratory Rate 16 11/21/24 17:46 Blood Pressure 133/84 11/21/24 17:46 Pulse Oximetry 96 11/21/24 17:46 Oxygen Delivery Method Room Air 11/21/24 17:46 Course Orders Ordered: ED Orders 11/21/24 20:16 CT abdomen pelvis w con Stat 11/21/24 20:24 Urine Culture Stat Urine Microscopic Stat Discontinued Medications Amoxicillin/Clavulanate Potassium (Amoxicillin/Clav 875/125 Mg) 1 tab PO NOW ONE Stop: 11/21/24 21:59 Last Admin: 11/21/24 22:14 Dose: 1 tab Documented By: WATSON Ketorolac Tromethamine (Ketorolac 30 Mg/Ml Vial) 15 mg IV NOW ONE Stop: 11/21/24 20:17 Last Admin: 11/21/24 20:28 Dose: 15 mg Documented By: CHAUNCEY Ondansetron HCl (Ondansetron 4 Mg/2 Ml Inj) 4 mg IV NOW PRN PRN Reason: Nausea And Vomiting Ondansetron HCl (Ondansetron 4 Mg Odt) 4 mg PO NOW PRN PRN Reason: Nausea And Vomiting Tramadol HCl (Tramadol 50 Mg Prepack) 1 bottle MISC DIRECTED ONE Stop: 11/21/24 22:01 Last Admin: 11/21/24 22:13 Dose: 1 bottle Documented By: WATSON Vital Signs Vital signs: Vital Signs - 8 hr 11/21/24 20:36 11/21/24 20:38 11/21/24 20:38 Pulse Rate 74 75 Respiratory Rate 13 Blood Pressure 178/81 H Pulse Oximetry 97 98 11/21/24 21:00 11/21/24 21:00 11/21/24 21:30 Pulse Rate 73 Respiratory Rate 14 Blood Pressure 153/76 H 146/79 H Pulse Oximetry 97 11/21/24 21:30 11/21/24 22:00 11/21/24 22:00 Pulse Rate 71 76 Respiratory Rate 15 15 Blood Pressure 153/96 H Pulse Oximetry 97 97 MDM - Abdominal Pain Lab Data 11/21/24 18:00 11/21/24 18:00 Labs: Lab Results 11/21/24 11/21/24 Range/Units 18:00 20:24 WBC 6.1 (4.5-11.0) X10^3/uL RBC 4.11 (4.0-5.2) X10^6/uL Hgb 13.2 (12.0-16.0) g/dL Hct 39.0 (36-46) % MCV 95.0 (80-100) fL MCH 32.0 (26-34) PG MCHC 33.7 (30-36) % RDW 13.6 (11.6-14.8) % Plt Count 276 (150-400) X10^3/uL Neut % (Auto) 54.8 (50-75) % Lymph % (Auto) 34.7 (25-40) % [place] % (Auto) 7.8 (3-14) % Eos % (Auto) 1.8 L (2-4) % Baso % (Auto) 0.9 (0-2) % Neut # (Auto) 3400 (0138-4629) /uL Lymph # (Auto) 2100 (9584-0993) /uL [place] # (Auto) 500 (0-900) /uL Eos # (Auto) 100 (0-450) /uL Baso # (Auto) 100 (0-100) /uL Sodium 136 L (137-145) mmol/L Potassium 4.4 (3.4-5.1) mmol/L Chloride 102 (98-107) mmol/L Carbon Dioxide 27 (22-32) mmol/L BUN 22 H (7-17) mg/dL Creatinine 0.73 (0.52-1.04) mg/dL Estimated GFR > 60 (>60) mL/min BUN/Creatinine Ratio 30.1 H (6-22) Glucose 132 H (80-110) mg/dL Calcium 9.4 (8.4-10.2) mg/dL Total Bilirubin 0.4 (0.2-1.3) mg/dL AST 40 H (14-36) IU/L ALT 32 (<35) IU/L Alkaline Phosphatase 71 (38-126) U/L Total Protein 7.4 (6.3-8.2) g/dL Albumin 4.2 (3.5-5.0) g/dL Globulin 3.2 (1.7-4.1) g/dL Albumin/Globulin Ratio 1.3 (1.0-2.8) Lipase 249 (23-300) U/L Urine RBC None seen (0-5/HPF) Urine WBC 1-5/hpf (0-5/HPF) Ur Squamous Epith Cells None seen (0-5/HPF) Urine Bacteria None seen (None) Vol Urine Centrifuged 10ml (spun) Point of care testing: Urine Dip Bedside Urine Glucose Negative Bedside Urine Bilirubin - Negative Bedside Urine Ketone - Negative Urine Specific [place] 1.020 Bedside Urine Occult Blood - Negative Bedside Urine pH 6.0 Bedside Urine Protein - Negative Bedside Urine Urobilinogen - Negative Bedside Urine Nitrite - Negative Bedside Urine Leukocytes ++ 125 Esterase ECG Data Attestation: I personally reviewed and interpreted this ECG as follows: Prior ECG tracings: available for review Interpretation: Sinus rhythm rate of 78 IA 132 QRS is 78 QTC of 430, no acute ST elevation depression noted. Patient has prior from 05/26/2024 which appears similar. [facility] Narrative Medical decision making narrative: Labs show white count of 6.1 hemoglobin of 13 platelets of 276. Chemistry shows sodium 136 BUN 22 otherwise normal electrolytes glucose of 132 calcium 9.4 AST is 40 ALT is 32 total bili is 0.4 lipase is 249. EKG shows sinus rhythm no acute ST changes compared to prior from May of 2024 poc urine is negative except for leukocyte esterase, no RBCs 1-5 white cells no squamous no bacteria. Urine culture is pending. CT abdomen pelvis shows simple hepatic cysts, or other acute intra-abdominal pelvic process, diverticulosis. Patient received Toradol 59-year-old female with complaint of left-sided abdominal pain persistent since she woke up this morning no flank pain that is reproducible on exam vitals are overall appropriate her labs do not show any major changes EKG appears appropriate. After discussion CT abdomen pelvis was to evaluate for diverticulitis versus other intra-abdominal process. Reviewed findings with the patient urine shows potential infection it is little bit atypical location for her pain is but I would go ahead and treat for potential UTI she does not have any flank pain. Discussed return precautions. Discharge Plan Departure Patient Disposition: Home Clinical Impression: UTI (urinary tract infection) Instructions: DI for Urinary Tract Infection (UTI) Activity Restrictions/Additional Instructions: Your workup today shows some hepatic cysts in the liver but no other major changes in your imaging. Your urine does show potential infection. Please take antibiotics until completed. Prescription sent to [facility] in [place]. There is also prescription for a small amount of narcotic pain medication you can take 1 tablet every 6 hours as needed. You can take this medication with your regular meloxicam and acetaminophen. This medication can make you sleepy do not drive, perform hazardous activities or make any major decisions while taking it. This medication will make you constipated please take a stool softener once to twice daily until stools are soft and regular. Please return for fevers, new or worsening abdominal back or flank pain, rash or skin changes, vomiting, black or bloody stools, difficulty with urinating or other new or concerning changes. Prescriptions: New amoxicillin-pot clavulanate 875-125 mg tablet 1 tab PO BID Qty: 14 0RF No Action benzonatate 200 mg capsule 200 mg PO BID PRN (Reason: cough) Qty: 28 0RF atorvastatin [Lipitor] 20 mg tablet 20 mg PO DAILY Qty: 45 3RF omeprazole 40 mg capsule,delayed release(DR/EC) 40 mg PO DAILY PRN (Reason: Acid Reflux) meloxicam 15 mg tablet 15 mg PO DAILY gabapentin 300 mg capsule 300 mg PO TID acetaminophen [Tylenol] 325 mg Capsule 650 mg PO Q4H PRN (Reason: Pain (Scale Score 1-3)) aspirin 81 mg Capsule 81 mg PO DAILY Referrals: Terrence Vitale MD [Primary Care Provider] - Stand Alone Forms: Patient Portal/API/Survey
--- NOTE | 2024-11-21 20:16 | DI.CT.S_ITS ---
PROCEDURE: CT ABDOMEN PELVIS W CON INDICATIONS: left sided abd pain, mid abd, no flank pain TECHNIQUE: After the administration of intravenous contrast, axial sections acquired from the lung bases to the pubic symphysis. Coronal and sagittal reformats were performed. For radiation dose reduction, the following was used: automated exposure control, adjustment of mA and/or kV according to patient size. COMPARISON: [facility], CT, CT ABDOMEN PELVIS W CON, 05/14/2024, 11:15. FINDINGS: Image quality: Diagnostic. Lower Chest: No significant findings. ABDOMEN: Liver: No solid mass. Simple hepatic cysts. Gallbladder: No radiopaque gallstones or wall thickening. Biliary ducts: No biliary dilation. Pancreas: No ductal dilation. Spleen: Size is within normal limits. Adrenal Glands: No adrenal nodules. Kidneys and Ureters: No hydronephrosis. No solid mass. No complex renal cystic lesion which requires follow up. Stomach and Bowel: Normal colonic caliber, without significant wall thickening. Diverticular present without inflammatory change. Peritoneum: No abnormal intraperitoneal fluid. No free air. Ventral Wall: No significant ventral hernia. Abdominal Nodes: No retroperitoneal or mesenteric adenopathy by size criteria. Vessels: Aorta and inferior vena cava are normal in size. PELVIS: Pelvic Organs: Unremarkable. Bladder: No bladder wall thickening, accounting for underdistention. Pelvic Nodes: No enlarged lymph nodes. Miscellaneous: No inguinal hernias are seen. Bones: No aggressive osseous abnormality. IMPRESSION: No acute intra-abdominal pelvic process. Diverticulosis. Dictated by: Angela Burrell M.D. on 11/21/2024 at 21:16 Approved by: Angela Burrell M.D. on 11/21/2024 at 21:21
[2024-11-21] MEDS: KETOROLAC 30 MG/ML VIAL 15 MG IV (20:28)
[2024-11-21 20:54] LABS: Bacteria Urine None Seen; RBC Urine None Seen (0-5/HPF); Squamous Epithelial Cell Urine None Seen (0-5/HPF); Urine Volume 10mL (spun); WBC Urine 1-5/HPF (0-5/HPF)
[2024-11-21] MEDS: TRAMADOL 50 MG PREPACK 1 BOTTLE MISC (22:13)
[2024-11-21] MEDS: AMOXICILLIN/CLAV 875/125 MG 1 TAB PO (22:14)
== END 2024-11-21 22:22 | disposition home or self-care (01) ==
PROVIDERS: Emergency Provider Emergency Medicine; PCP Family Medicine
DX: N39.0 Urinary tract infection, site not specified (principal); R19.7 Diarrhea, unspecified; M25.571 Pain in right ankle and joints of right foot; Z98.890 Other specified postprocedural states; Z87.891 Personal history of nicotine dependence
CPT/HCPCS: 36415; 74177; 80053; 81003; 81015; 83690; 85025; 87086; 93005; 93010; 96374; 99284; J1885; Q9967

== ENCOUNTER → 2024-12-04 11:51 | Outpatient (CLI) | payer OTHER, SELFPAY ==
[2024-12-07 18:36] LABS: Interpretation Negative (Negative)
== END ==
PROVIDERS: PCP Family Medicine; Referring Provider Family Medicine; Visit Provider Family Medicine
DX: R10.12 Left upper quadrant pain (principal)
CPT/HCPCS: 83013

== ENCOUNTER → 2024-12-11 13:40 | Outpatient (CLI) | payer OTHER, SELFPAY ==
--- NOTE | 2024-12-11 13:40 | DI.MRI.S_ITS ---
PROCEDURE: MR KNEE LT WO CON INDICATIONS: SPRAIN OF LEFT KNEE TECHNIQUE: Noncontrast sagittal PD fast spin echo and T2 fast spin echo with fat saturation, sagittal 3-D FLASH with fat saturation; coronal T1 spin echo and PD fast spin echo with fat saturation, and axial PD fast spin echo with fat saturation through the knee. COMPARISON: None. FINDINGS: Image quality: Excellent. Menisci: Complex oblique tear involving posterior horn of medial meniscus near its posterior medial meniscal root insertion is seen extending to both superior and inferior articulating surfaces. The lateral meniscus is intact. Cruciate ligaments: The anterior cruciate ligament is mildly thickened. The posterior cruciate ligament is intact. Medial structures: The medial collateral ligament appears intact. The posterior oblique ligament, semimembranosus tendon insertions, oblique popliteal ligament, and meniscocapsular junction appear intact. Visualized portions of the pes anserinus tendons appear normal. No abnormal bursal fluid. Lateral structures: The lateral collateral ligament, long and short heads of the biceps femoris tendon appear intact. The popliteus tendon appears normal. Iliotibial band appears normal. Anterior structures: Distal quadriceps tendinosis at its superior patellar insertion. The patellar tendon is intact. The patella alignment is normal. Bones and cartilage: There is [id number] tricompartmental osteoarthritis and chondromalacia more notably involving medial femoral tibial compartment and apex of patella cartilage. No fracture or dislocation. No gross marrow edema. Joint space: There is small knee joint fluid. No Monterroso's cyst. Normal appearing synovial plicae are incidentally noted. IMPRESSION: 1. Complex oblique tear involving posterior horn of medial meniscus near its posterior medial meniscal root insertion with extension to both superior and inferior articulating surfaces. No lateral meniscal tear. 2. Low-grade ACL sprain. No ACL rupture. The PCL is intact. 3. Medial and lateral collateral ligaments are grossly intact. 4. Distal quadriceps tendinosis. 5. [id number] tricompartmental osteoarthritis and chondromalacia more notably in medial femoral tibial compartment and apex of patella cartilage. No full-thickness cartilage defects. No fracture or dislocation. Small joint effusion, no loose bodies. Dictated by: Gopi Rothman M.D. on 12/11/2024 at 16:51 Approved by: Gopi Rothman M.D. on 12/11/2024 at 16:56
== END ==
PROVIDERS: PCP Family Medicine; Referring Provider Orthopaedic Surgery; Visit Provider Orthopaedic Surgery
DX: S83.232A Complex tear of medial meniscus, current injury, left knee, initial encounter (principal); S83.512A Sprain of anterior cruciate ligament of left knee, initial encounter; S83.8X2A Sprain of other specified parts of left knee, initial encounter; M17.12 Unilateral primary osteoarthritis, left knee; M25.462 Effusion, left knee
CPT/HCPCS: 73721

== ENCOUNTER → 2025-01-15 10:59 | Outpatient (CLI) | payer OTHER, SELFPAY ==
[2025-01-15 11:21] LABS: Add Manual Diff / Slide Review NO; Basophils Absolute Auto 100 /uL (0-100); Basophils Percent Auto 1.2 % (0-2); Eosinophils Absolute Auto 100 /uL (0-450); Eosinophils Percent Auto 1.7 % (2-4); Hematocrit 40.7 % (36-46); Hemoglobin 14.1 g/dL (12.0-16.0); Lymphocytes Absolute Auto 1800 /uL (1100-4500); Lymphocytes Percent Auto 32.8 % (25-40); Mean Corpuscular HGB Conc 34.5 % (30-36); Mean Corpuscular Hemoglobin 33.1 PG (26-34); Mean Corpuscular Volume 95.8 fL (80-100); Monocytes Absolute Auto 400 /uL (0-900); Monocytes Percent Auto 6.6 % (3-14); Neutrophils Absolute Auto 3300 /uL (1500-7000); Neutrophils Percent Auto 57.7 % (50-75); Platelet Count 279 X10^3/uL (150-400); Red Blood Cell Count 4.25 X10^6/uL (4.0-5.2); White Blood Cell Count 5.6 X10^3/uL (4.5-11.0)
[2025-01-15 11:31] LABS: Lipase 151 U/L (23-300)
[2025-01-15 11:33] LABS: Alanine Aminotransferase 32 IU/L (<35); Albumin 4.6 g/dL (3.5-5.0); Albumin Globulin Ratio 1.5 (1.0-2.8); Alkaline Phosphatase 84 U/L (38-126); Aspartate Aminotransferase 39 IU/L (14-36); BUN Creatinine Ratio 28.4 (6-22); Bilirubin Total 0.7 mg/dL (0.2-1.3); Blood Urea Nitrogen 21 mg/dL (7-17); Calcium 9.7 mg/dL (8.4-10.2); Carbon Dioxide 26 mmol/L (22-32); Chloride 103 mmol/L (98-107); Estimated Glomerular Filt Rate > 60 mL/min (>60); Globulin 3.1 g/dL (1.7-4.1); Glucose 105 mg/dL (70-99); HEMOLYSIS < 15 (0-50); Potassium 4.8 mmol/L (3.4-5.1); Sodium 137 mmol/L (137-145); Total Protein 7.7 g/dL (6.3-8.2)
[2025-01-15 12:05] LABS: TSH w/ Reflex to FT4 1.64 uIU/mL (0.47-4.68)
== END ==
PROVIDERS: PCP Family Medicine; Referring Provider Family Medicine; Visit Provider Family Medicine
DX: R10.12 Left upper quadrant pain (principal); K57.90 Diverticulosis of intestine, part unspecified, without perforation or abscess without bleeding; K63.5 Polyp of colon
CPT/HCPCS: 36415; 80053; 83690; 84443; 85025

== ENCOUNTER → 2025-01-27 08:51 | Outpatient (CLI) | payer OTHER, SELFPAY ==
--- NOTE | 2025-01-27 10:03 | DI.CT.S_ITS ---
PROCEDURE: CT ABDOMEN PELVIS W CON INDICATIONS: Left Upper Quadrant Abdominal Pain TECHNIQUE: After the administration of intravenous contrast, axial sections acquired from the lung bases to the pubic symphysis. Coronal and sagittal reformats were performed. For radiation dose reduction, the following was used: automated exposure control, adjustment of mA and/or kV according to patient size. COMPARISON: [facility], CT, CT ABDOMEN PELVIS W CON, 11/21/2024, 20:21. FINDINGS: Image quality: Diagnostic. Lower Chest: No significant findings. ABDOMEN: Liver: No solid mass. Gallbladder: No radiopaque gallstones or wall thickening. Biliary ducts: No biliary dilation. Pancreas: No ductal dilation. Spleen: Size is within normal limits. Adrenal Glands: No adrenal nodules. Kidneys and Ureters: No hydronephrosis. No solid mass. No complex renal cystic lesion which requires follow up. Stomach and Bowel: Colitis is present involving the cecum through the transverse colon. There is mild thumbprinting present. There is also involvement of the terminal ileum. There is a normal appendix. There is moderately advanced sigmoid diverticulosis without CT evidence of acute diverticulitis. Peritoneum: No abnormal intraperitoneal fluid. No free air. Ventral Wall: No significant ventral hernia. Abdominal Nodes: No retroperitoneal or mesenteric adenopathy by size criteria. Vessels: Aorta and inferior vena cava are normal in size. PELVIS: Pelvic Organs: Unremarkable. Bladder: No bladder wall thickening, accounting for underdistention. Pelvic Nodes: No enlarged lymph nodes. Miscellaneous: No inguinal hernias are seen. Bones: No aggressive osseous abnormality. IMPRESSION: Terminal ileitis plus segmental colitis from the cecum through the entirety of the transverse colon. Consider infectious versus inflammatory etiologies. Ischemic etiology is unlikely. Dictated by: Julio Cesar Mendez M.D. on 01/27/2025 at 10:31 Approved by: Julio Cesar Mendez M.D. on 01/27/2025 at 10:36
== END ==
PROVIDERS: PCP Family Medicine; Referring Provider Family Medicine; Visit Provider Family Medicine
DX: K50.80 Crohn's disease of both small and large intestine without complications (principal); K57.90 Diverticulosis of intestine, part unspecified, without perforation or abscess without bleeding; K63.5 Polyp of colon; R10.12 Left upper quadrant pain
CPT/HCPCS: 74177; Q9967

== ENCOUNTER 2025-02-04 12:35 | Day surgery (SDC) | payer OTHER, SELFPAY ==
--- NOTE | 2025-02-04 | PATH_ITS ---
[facility] Accession Number: [id number] No. of containers..01 Tissue . 01 Material submitted: . stomach - ANTRUM . 01 Diagnosis: A. GASTRIC ANTRUM, BIOPSY: Gastric antral mucosa with mild chronic and active inflammation. Negative for Helicobacter organisms by immunohistochemistry. Negative for intestinal metaplasia. Negative for dysplasia or malignancy. V 02/11/2025 1420 Local . 01 Electronically signed: . Kevin Payton MD, PhD, Pathologist NPI- [id number] . 01 Gross description: . ANTRUM: Received in formalin are 2 fragment(s) of leroy, soft tissue measuring 0.3 x 0.3 x 0.2 cm to 0.5 x 0.3 x 0.2 cm submitted entirely in 1 cassette(s) /[place] 02/09/2025 0102 Local . 01 Microscopic: . A. An immunohistochemical stain was performed to evaluate for Helicobacter organisms and is negative. The control stain showed appropriate reactivity. . * This test was developed and the performance characteristics were validated by [employer]. It has not been cleared or approved by the U.S. Food and Drug Administration. . 01 Pathologist provided ICD-10: K29.70 . 01 CPT . 988896, U88444 Specimen Comment: A courtesy copy of this report has been sent to [phone] Performed at: [address] [id number] MD Ashok Kwong MD Phone: [phone]
[2025-02-04 13:15] VITALS: BP 120/81; PULSE 78; RESP 16; TEMP 36.6; O2SAT 100
[2025-02-04] MEDS: LACTATED RINGERS 1,000 ML 42 ML IV (13:18)
--- NOTE | 2025-02-04 14:22 | PM.HP.IH.1 ---
History of Present Illness History of Present Illness Date Patient Seen: 02/04/25 Time Patient Seen: 14:23 Chief complaint: Colonoscopy Narrative: Ale is a 59-year-old woman who presents for an EGD and colonoscopy. She had a colonoscopy last August with rather large sessile serrated adenoma with low-grade dysplasia resected. She has also had increasing left upper quadrant abdominal pain over past few months. [facility] Medical History Closed left ankle fracture Immunity to hepatitis C determined by serologic test Acute hearing loss of right ear Hyperlipidemia Dermatitis of both ear canals Social History household members: significant other Smoking Status: Former smoker alcohol intake: current Meds Home Medications and Allergies Home Medications ?Medication ?Instructions ?Recorded ?Confirmed ?Type acetaminophen 325 mg capsule 650 mg PO Q4H PRN Pain (Scale 10/01/23 02/04/25 History (Tylenol) Score 1-3) aspirin 81 mg capsule 81 mg PO DAILY 10/01/23 02/04/25 History gabapentin 300 mg capsule 300 mg PO TID 02/03/24 02/04/25 History meloxicam 15 mg tablet 15 mg PO DAILY Swelling 04/08/24 02/04/25 History omeprazole 40 mg capsule,delayed 40 mg PO DAILY PRN Acid Reflux 06/15/24 02/04/25 History release desonide 0.05 % topical cream 1 applic topical BID #15 grams 12/04/24 02/04/25 Rx atorvastatin 20 mg tablet (Lipitor) 20 mg PO DAILY #45 tabs 12/21/24 02/04/25 Rx amoxicillin 875 mg-potassium 1 tab PO BID #20 tabs 01/29/25 02/04/25 Rx clavulanate 125 mg tablet Allergies Allergy/AdvReac Type Severity Reaction Status Date / Time No Known Drug Allergies Allergy Verified 02/04/25 12:58 Exam Vital Signs (past 8 hours): - 02/04/25 13:15 Temperature 97.9 F Pulse Rate 78 Respiratory Rate 16 Blood Pressure 120/81 Pulse Oximetry 100 Oxygen Delivery Method Room Air Oxygen Delivery Method Room Air Const General: No acute distress Assessment & Plan Assessment and plan (1) History of adenomatous polyp of colon: Status: Acute Assessment & Plan narrative: EGD and colonoscopy Time-Based Coding :: [TOTAL MINUTES] spent with patient and on the chart (including review of chart, obtaining history, exam, reviewing outside data, placing orders, documenting exam and treatment plan, and counseling patient) on [DATE]. [employer] Document charge(s): No
--- NOTE | 2025-02-04 15:00 | P.OP.EGD&C_ITS ---
Operative Date/Time/Diagnoses Date of procedure: 02/04/25 Time of procedure: 15:00 Pre-op diagnosis: Abdominal pain and history of sessile serrated adenoma with low-grade dysplasia Post-op diagnosis: same Procedure & Clinicians Study performed: EGD and colonoscopy Same procedure as scheduled: Yes Surgeon: Yo Rodriguez Procedure Notes Procedure in detail: Surgeon: Yo Rodriguez MD Anesthesia: Kayleighneil Ruth TENDER COORDINATOR Procedure in detail: A timeout was performed. A bite blocked was placed and m onitors were attached to the patient. The patient was positioned in the left lateral decubitus position. Sedation was administered. Once the patient was sedated the endoscope was inserted through the bite block and passed through the esophagus and stomach and into the duodenum. There were no abnormalities in the duodenum. We then withdrew the scope into the stomach. There was mild antritis and random biopsies were taken with cold forceps. The endoscope was retroflexed and a small hiatal hernia was noted. The endoscope was straightned and withdrawn into the esophagus. There were no abnormalities in the esophagus. The hiatal hernia was approximately 2 cm EGD findings: Mild antritis, small hiatal hernia Next we repositioned the patient for a colonoscopy. A digital rectal exam was performed and was normal. The colonoscope was inserted and advanced to the cecum. The appendiceal orifice was identified and photographed. The scope was slowly withdrawn over greater than 6 minutes. There was no evidence of any residual polyp in the ascending colon. The rest of the colon was normal. The scope was retroflexed in the rectum and no other abnormalities were found. Colonoscopy findings: Normal colon Total procedural EBL: 5 mL Scope withdrawal time: 9 minutes Sedation minutes: 23 minutes Post-procedure Recommendations: Colonscopy in 5 years Disposition: PACU
[2025-02-04 15:02] VITALS: BP 111/73; PULSE 79; RESP 15; TEMP 36.4; O2SAT 98
== END 2025-02-04 15:26 | disposition home or self-care (01) ==
PROVIDERS: PCP Family Medicine; Referring Provider Family Medicine; Visit Provider Surgery
PROC: 0DJ08ZZ Inspection of Upper Intestinal Tract, Via Natural or Artificial Opening Endoscopic (ICD-10-PCS; CPT 45378; principal; 2025-02-04 13:45)
PROC: 0DJD8ZZ Inspection of Lower Intestinal Tract, Via Natural or Artificial Opening Endoscopic (ICD-10-PCS; CPT 45378; 2025-02-04 13:45)
DX: R10.9 Unspecified abdominal pain (principal); Z86.0101 Personal history of adenomatous and serrated colon polyps; R13.10 Dysphagia, unspecified; K29.50 Unspecified chronic gastritis without bleeding; K44.9 Diaphragmatic hernia without obstruction or gangrene
CPT/HCPCS: 45378; 43239; J2704

== ENCOUNTER → 2025-06-30 14:40 | Outpatient (CLI) | payer OTHER, SELFPAY ==
[2025-06-30 16:04] LABS: Add Manual Diff / Slide Review NO; Hematocrit 40.4 % (36-46); Hemoglobin 13.8 g/dL (12.0-16.0); Lymphocytes Absolute Auto 1800 /uL (1100-4500); Mean Corpuscular HGB Conc 34.2 % (30-36); Mean Corpuscular Hemoglobin 32.6 PG (26-34); Mean Corpuscular Volume 95.3 fL (80-100); Platelet Count 231 X10^3/uL (150-400)
[2025-06-30 16:39] LABS: Alanine Aminotransferase 39 IU/L (<35); Albumin 4.6 g/dL (3.5-5.0); Albumin Globulin Ratio 1.6 (1.0-2.8); Alkaline Phosphatase 75 U/L (38-126); Blood Urea Nitrogen 13 mg/dL (7-17); Calcium 9.6 mg/dL (8.4-10.2); Carbon Dioxide 28 mmol/L (22-32); Chloride 101 mmol/L (98-107); Cholesterol 174 mg/dL (140-199); Estimated Glomerular Filt Rate > 60 mL/min (>60); Globulin 2.9 g/dL (1.7-4.1); Glucose 93 mg/dL (70-99); HDL Cholesterol 85 mg/dL (40-60); HEMOLYSIS < 15 (0-50); Potassium 4.6 mmol/L (3.4-5.1); Sodium 136 mmol/L (137-145); Total Protein 7.5 g/dL (6.3-8.2); Triglycerides 112 mg/dL (35-150)
[2025-06-30 17:06] LABS: TSH w/ Reflex to FT4 1.07 uIU/mL (0.47-4.68)
== END ==
PROVIDERS: PCP Family Medicine; Referring Provider Family Medicine; Visit Provider Family Medicine
DX: R53.83 Other fatigue (principal); G47.19 Other hypersomnia; I10 Essential (primary) hypertension; G62.9 Polyneuropathy, unspecified
CPT/HCPCS: 36415; 80053; 80061; 82043; 82570; 84443; 85025

== ENCOUNTER → 2025-08-20 08:48 | Outpatient (CLI) | payer OTHER, SELFPAY ==
[2025-08-20 10:04] LABS: Influenza A - CEPHEID Flu A NEGATIVE (NEGATIVE); Influenza B - CEPHEID Flu B NEGATIVE (NEGATIVE)
[2025-08-20 10:07] LABS: COVID-19 CEPHEID 4-PLEX PCR POSITIVE (Negative)
== END ==
PROVIDERS: PCP Family Medicine; Visit Provider Family Medicine
DX: J02.9 Acute pharyngitis, unspecified (principal); R05.1 Acute cough
CPT/HCPCS: 87070; 87637